=== PATIENT | female | born 1940 | race Caucasian/White ===

== ENCOUNTER 2017-03-20 12:11 | Emergency (ER) | payer OTHER ==
[~2017-03-20] VITALS: Ht 149.9 cm; Wt 66.0 kg
[~2017-03-20 12:11] MED LIST: ATOR20TA15 PO; CLOP75TA PO; IRON18TA2 PO; LATA0.002 EACH EYE; NEXI40CA PO; OMEG100037 PO; PERC5TAB12 PO; PRED1SUS6 EACH EYE; VITA100036 PO
[2017-03-20 12:14] VITALS: BP 181/91; PULSE 85; RESP 16; TEMP 98.1; O2SAT 97
[2017-03-20] MEDS ORDERED: [UNRECOGNIZED DRUG - OTHER] (12:33)
--- NOTE | 2017-03-20 12:59 | PD ---
HPI Chief Complaint: Pain: Acute or Chronic Time Seen by Provider: 12:32 Travel History International Travel<30 days: No Contact w/Intl Traveler<30days: No Traveled to known affect area: No History of Present Illness HPI 76-year-old female presents the emergency Department with complaints of abdominal pain, and left lower back pain with sciatic symptoms gardening 2 days ago. Patient states she has chronic abdominal pain from hernia as well as increased left lower abdominal pain in the last several days. Patient is a very poor historian. He denies weakness in the left lower extremity but has pain in the left hip. She states she's had multiple steroid injections in the neck for previous spinal stenosis and cervical disc problems, but these may her itch. Patient states that aspirin upsets her stomach. It is not a true allergy. Pain is 3 out of 10 in the left hip and left lower abdomen. Patient denies nausea or vomiting. She denies urinary symptoms. PFSH Past Medical History Arthritis: Yes (hands, feetl, legs) Heart Rhythm Problems: No Cardiac Catheterization: No Cardiovascular Problems: No High Cholesterol: Yes Congestive Heart Failure: No Cerebrovascular Accident: Yes (CVA 2014) Coronary Artery Disease: Yes (DENIES ON 07/09/14) Diabetes: No Diminished Hearing: Yes (some [place]) Genitourinary: No Hypertension: Yes Neurologic: Yes (GETS DIZZY AT TIMES) Respiratory: No Immunizations Current: No Thyroid Disease: Yes Triglycerides - High: Yes Menopausal: Yes : 2 Para: 2 Ovarian Cysts: Yes (ovaries removed) Past Surgical History Appendectomy: Yes Cholecystectomy: Yes Coronary Artery Bypass Graft: No Endocrine Surgery: No Genitourinary Surgery: Yes (bladder tuck.) Gynecologic Surgery: Yes (hysterctomy) Hysterectomy: Yes Other Surgery: Yes (BLADDER UPLIFT) Social History Alcohol Use: No Tobacco Use: No Substance Use: No Allergies-Medications (Allergen,Severity, Reaction): Coded Allergies: butorphanol (Unverified Allergy, Severe, RASH, 03/20/17) aspirin (Unverified Allergy, Intermediate, Vertigo, 03/20/17) Uncoded Allergies: STEROIDS (Allergy, Mild, 04/11/16) . Reported Meds & Prescriptions Reported Meds & Active Scripts Active Reported [Aspirine Codeine ] Review of Systems Except as stated in HPI: all other systems reviewed are Neg General / Constitutional: No: Fever Eyes: No: Visual changes HENT: No: Headaches Cardiovascular: No: Chest Pain or Discomfort Respiratory: No: Shortness of Breath Gastrointestinal: Positive: Abdominal Pain, No: Nausea, Vomiting, Diarrhea, Constipation, Loss of Appetite Genitourinary: No: Urgency, Frequency, Dysuria Musculoskeletal: Positive: Arthralgias, Limited ROM, Pain Skin: No Rash Neurologic: No: Weakness Psychiatric: No: Depression Endocrine: No: Polydipsia Hematologic/Lymphatic: No: Easy Bruising Physical Exam Narrative GENERAL: Patient appears in no acute distress. SKIN: Warm and dry. Normal color. Normal turgor. No rash. HEAD: Atraumatic. Normocephalic. EYES: Pupils equal and round. No scleral icterus. No injection or drainage. ENT: No nasal bleeding or discharge. Mucous membranes pink and moist. Pharynx is clear. Airway is patent. NECK: Trachea midline. Supple nontender. CARDIOVASCULAR: Regular rate and rhythm. RESPIRATORY: No accessory muscle use. Clear to auscultation. Breath sounds equal bilaterally. GASTROINTESTINAL: Abdomen soft, mild to moderate left lower quadrant tenderness without rebound, nondistended. Bowel sounds appreciated quadrants. No CVA tenderness. Hepatic and splenic margins not palpable. MUSCULOSKELETAL: Extremities without clubbing, cyanosis, or edema. No obvious deformities. Patient has pain in the left hip extension and internal and external rotation. Negative straight leg raise pain suggestive of sciatica NEUROLOGICAL: Awake and alert. No obvious cranial nerve deficits. Motor grossly within normal limits. Five out of 5 muscle strength in the arms and legs. Normal speech. PSYCHIATRIC: Appropriate mood and affect; insight and judgment normal. Data Data Last Documented VS Vital Signs Date Time Temp Pulse Resp B/P (MAP) Pulse Ox O2 Delivery O2 Flow Rate FiO2 03/20/17 13:22 (121) 03/20/17 12:14 98.1 85 16 97 Orders Orders Complete Blood Count With Diff (03/20/17 12:46) Comprehensive Metabolic Panel (03/20/17 12:46) Lipase (03/20/17 12:46) Lactic Acid (03/20/17 12:46) Prothrombin Time / Inr (Pt) (03/20/17 12:46) Act Partial Throm Time (Ptt) (03/20/17 12:46) Urinalysis - C+S If Indicated (03/20/17 12:46) Ct Abd/Pel W Iv Contrast(Rout) (03/20/17 12:46) Iv Access Insert/Monitor (03/20/17 12:46) Ecg Monitoring (03/20/17 12:46) Oximetry (03/20/17 12:46) Sodium Chloride 0.9% Flush (Ns Flush) (03/20/17 13:00) Methylprednisolone So Succ Inj (Solumedr (03/20/17 13:00) Iohexol 350 Inj (Omnipaque 350 Inj) (03/20/17 15:00) Labs Laboratory Tests Test 03/20/17 13:10 03/20/17 13:30 03/20/17 13:50 White Blood Count 6.9 TH/MM3 Red Blood Count 4.60 MIL/MM3 Hemoglobin 13.4 GM/DL Hematocrit 40.6 % Mean Corpuscular Volume 88.3 FL Mean Corpuscular Hemoglobin 29.1 PG Mean Corpuscular Hemoglobin Concent 32.9 % Red Cell Distribution Width 12.8 % Platelet Count 195 TH/MM3 Mean Platelet Volume 9.6 FL Neutrophils (%) (Auto) 62.7 % Lymphocytes (%) (Auto) 28.0 % Monocytes (%) (Auto) 5.7 % Eosinophils (%) (Auto) 3.1 % Basophils (%) (Auto) 0.5 % Neutrophils # (Auto) 4.3 TH/MM3 Lymphocytes # (Auto) 1.9 TH/MM3 Monocytes # (Auto) 0.4 TH/MM3 Eosinophils # (Auto) 0.2 TH/MM3 Basophils # (Auto) 0.0 TH/MM3 CBC Comment DIFF FINAL Differential Comment Prothrombin Time 10.5 SEC Prothromb Time International Ratio 1.0 RATIO Activated Partial Thromboplast Time 25.5 SEC Blood Urea Nitrogen 15 MG/DL Creatinine 0.82 MG/DL Random Glucose 129 MG/DL Total Protein 7.3 GM/DL Albumin 3.5 GM/DL Calcium Level 9.5 MG/DL Alkaline Phosphatase 80 U/L Aspartate Amino Transf (AST/SGOT) 30 U/L Alanine Aminotransferase (ALT/SGPT) 40 U/L Total Bilirubin 0.3 MG/DL Sodium Level 140 MEQ/L Potassium Level 3.7 MEQ/L Chloride Level 108 MEQ/L Carbon Dioxide Level 26.3 MEQ/L Anion Gap 6 MEQ/L Estimat Glomerular Filtration Rate 68 ML/MIN Lipase 280 U/L Urine Color LIGHT-YELLOW Urine Turbidity CLEAR Urine pH 6.0 Urine Specific [place] 1.005 Urine Protein NEG mg/dL Urine Glucose (UA) NEG mg/dL Urine Ketones NEG mg/dL Urine Occult Blood NEG Urine Nitrite NEG Urine Bilirubin NEG Urine Urobilinogen LESS THAN 2.0 MG/DL Urine Leukocyte Esterase NEG Urine RBC LESS THAN 1 /hpf Urine WBC LESS THAN 1 /hpf Urine Squamous Epithelial Cells 2 /hpf Urine Transitional Epithelial Cells <1 /hpf Urine Bacteria RARE /hpf Microscopic Urinalysis Comment CULT NOT INDICATED Lactic Acid Level 1.0 mmol/L [facility] Medical Decision Making Medical Screen Exam Complete: Yes Emergency Medical Condition: Yes Medical Record Reviewed: Yes Differential Diagnosis Left hip arthritis. Sciatica. Left lower abdominal pain. Narrative Course Patient is medically stable at time of exam. Labs ordered including CBC, CMP, PT PTT and INR, Lactic acid, lipase, urinalysis. CT of the abdomen/pelvis with IV contrast is ordered. IV access is obtained patient is given 125 mg Solu-Medrol IV. CBC is unremarkable. Chemistries are unremarkable except for chloride of 108, GFR 68, random glucose 129. Lactic acid is 1.0. Coagulation studies are normal. Urinalysis is unremarkable. CT of the abdomen shows no acute process. Patient is felt stable for discharge. Patient will be continued on prednisone by mouth 20 mg daily for the next 5 days. Patient take extra strength Tylenol 500 mg tabs, 2 tabs every 6 hours when necessary pain #60. Patient should follow with her primary care physician for further evaluation and treatment as needed. Diagnosis Primary Impression: Arthritis of left hip Additional Impression: Abdominal pain Qualified Codes: R10.32 - Left lower quadrant pain Referrals: Primary Care Physician Patient Instructions: Acetaminophen (By mouth), General Instructions, Osteoarthritis (ED), Prednisone (By mouth) Additional Instructions: CBC is unremarkable. Chemistries are unremarkable except for chloride of 108, GFR 68, random glucose 129. Lactic acid is 1.0. Coagulation studies are normal. Urinalysis is unremarkable. CT of the abdomen shows no acute process. Patient is felt stable for discharge. Patient will be continued on prednisone by mouth 20 mg daily for the next 5 days. Patient take extra strength Tylenol 500 mg tabs, 2 tabs every 6 hours when necessary pain #60. Patient should follow with her primary care physician for further evaluation and treatment as needed. Disposition: DISCHARGE HOME Condition: Stable Wale Vyas Mar 20, 2017 12:59
[2017-03-20] MEDS ORDERED: SODIUM CHLORIDE 0.9% FLUSH 10 ML FLUSH IV FLUSH PRN (13:00)
[2017-03-20] MEDS ORDERED: methylPREDNISolone SOD SUCC 125 MG/2 ML VIAL IV PUSH ONE (13:00)
[2017-03-20 13:33] LABS: AUTOMATED NEUTROPHIL # 4.3 TH/MM3 (1.8-7.7); BASOPHIL % 0.5 % (0.0-2.0); EOSINOPHIL # 0.2 TH/MM3 (0-0.4); EOSINOPHIL % 3.1 % (0.0-4.0); HEMATOCRIT 40.6 % (35.0-46.0); HEMOGLOBIN 13.4 GM/DL (11.6-15.3); LYMPHOCYTE # 1.9 TH/MM3 (1.0-4.8); MEAN CELL VOLUME 88.3 FL (80.0-100.0); MEAN CORPUSCULAR HEMOGLOBIN 29.1 PG (27.0-34.0); MEAN CORPUSCULAR HGB CONC 32.9 % (32.0-36.0); MEAN PLATELET VOLUME 9.6 FL (7.0-11.0); MONO % 5.7 % (0.0-8.0); MONOCYTE # 0.4 TH/MM3 (0-0.9); NEUT % 62.7 % (16.0-70.0); PLATELET COUNT 195 TH/MM3 (150-450); RED CELL DISTRIBUTION WIDTH 12.8 % (11.6-17.2); WHITE BLOOD COUNT 6.9 TH/MM3 (4.0-11.0)
[2017-03-20 13:42] LABS: PROTHROMBIN TIME - PATIENT 10.5 SEC (9.8-11.6)
--- NOTE | 2017-03-20 13:50 | PD ---
Physical Exam Date Seen by Provider: Mar 20, 2017 Narrative Patient presents with a multitude of complaints including abdominal pain, back pain, left leg pain Data Data Last Documented VS Vital Signs Date Time Temp Pulse Resp B/P (MAP) Pulse Ox O2 Delivery O2 Flow Rate FiO2 03/20/17 13:22 (121) 03/20/17 12:14 98.1 85 16 97 Orders Orders Complete Blood Count With Diff (03/20/17 12:46) Comprehensive Metabolic Panel (03/20/17 12:46) Lipase (03/20/17 12:46) Lactic Acid (03/20/17 12:46) Prothrombin Time / Inr (Pt) (03/20/17 12:46) Act Partial Throm Time (Ptt) (03/20/17 12:46) Urinalysis - C+S If Indicated (03/20/17 12:46) Ct Abd/Pel W Iv Contrast(Rout) (03/20/17 12:46) Iv Access Insert/Monitor (03/20/17 12:46) Ecg Monitoring (03/20/17 12:46) Oximetry (03/20/17 12:46) Sodium Chloride 0.9% Flush (Ns Flush) (03/20/17 13:00) Methylprednisolone So Succ Inj (Solumedr (03/20/17 13:00) Labs Laboratory Tests Test 03/20/17 13:10 White Blood Count 6.9 TH/MM3 Red Blood Count 4.60 MIL/MM3 Hemoglobin 13.4 GM/DL Hematocrit 40.6 % Mean Corpuscular Volume 88.3 FL Mean Corpuscular Hemoglobin 29.1 PG Mean Corpuscular Hemoglobin Concent 32.9 % Red Cell Distribution Width 12.8 % Platelet Count 195 TH/MM3 Mean Platelet Volume 9.6 FL Neutrophils (%) (Auto) 62.7 % Lymphocytes (%) (Auto) 28.0 % Monocytes (%) (Auto) 5.7 % Eosinophils (%) (Auto) 3.1 % Basophils (%) (Auto) 0.5 % Neutrophils # (Auto) 4.3 TH/MM3 Lymphocytes # (Auto) 1.9 TH/MM3 Monocytes # (Auto) 0.4 TH/MM3 Eosinophils # (Auto) 0.2 TH/MM3 Basophils # (Auto) 0.0 TH/MM3 CBC Comment DIFF FINAL Differential Comment Prothrombin Time 10.5 SEC Prothromb Time International Ratio 1.0 RATIO Activated Partial Thromboplast Time 25.5 SEC MDM Supervised Visit with KELLI: Yes Narrative Course I, Dr. Pinzon, have reviewed the advance practice practitioner's documentation and am in agreement, met with the patient face to face, made the diagnosis, and the medical decision making was done by me. *My assessment and Findings: Her abdomen is soft. I assisted her to the bathroom and she walks with a limp favoring her left leg. Please see Dre Vyas PA-C's note for results of laboratory and radiographic evaluation, ED course, final diagnosis and disposition Condition: Stable Inge Pinzon MD Mar 20, 2017 13:50
[2017-03-20 13:52] LABS: ALBUMIN 3.5 GM/DL (3.4-5.0); AST (GOT) 30 U/L (15-37); BICARBONATE 26.3 MEQ/L (21.0-32.0); BLOOD UREA NITROGEN 15 MG/DL (7-18); CALCIUM 9.5 MG/DL (8.5-10.1); CHLORIDE 108 MEQ/L (98-107); CREATININE 0.82 MG/DL (0.50-1.00); GLOMERULAR FILTRATION RATE 68 ML/MIN (>89); GLUCOSE,RANDOM 129 MG/DL (74-106); LIPASE 280 U/L (73-393); SODIUM (NA) 140 MEQ/L (136-145)
[2017-03-20 13:53] LABS: ALT (GPT) 40 U/L (10-53)
[2017-03-20 13:55] LABS: ALKALINE PHOSPHATASE 80 U/L (45-117); TOTAL BILIRUBIN ADULT 0.3 MG/DL (0.2-1.0); TOTAL PROTEIN 7.3 GM/DL (6.4-8.2)
[2017-03-20 14:16] LABS: BACTERIA, URINE RARE /hpf; BILIRUBIN, URINE NEG (NEG); BLOOD, URINE NEG (NEG); GLUCOSE,URINE NEG (NEG); KETONE, URINE NEG (NEG); NITRITE,URINE NEG (NEG); SQUAMOUS EPITHELIAL CELL URINE 2 /hpf (0-5); TRANSITIONAL EPI CELLS, URINE <1 /hpf; URINE COLOR LIGHT-YELLOW (YELLW/STRAW); URINE LEUKOCYTE ESTERASE NEG (NEG)
[2017-03-20] MEDS ORDERED: IOHEXOL 350 MG/ML 10 ML VIAL (for RAD DIAG) IVCONTRAST ONE (15:00)
--- NOTE | 2017-03-20 15:26 | RADRPT ---
EXAM DATE/TIME: 03/20/2017 14:49 [facility] COMPARISON: CT PULMONARY ANGIOGRAM, March 30, 2014, 8:45. INDICATIONS : Left lower abdomen pain for one week. IV CONTRAST: 76 cc Omnipaque 350 (iohexol) IV ORAL CONTRAST: No oral contrast ingested. RADIATION DOSE: 6.91 CTDIvol (mGy) MEDICAL HISTORY : Stroke. Hypertension. SURGICAL HISTORY : Hysterectomy. Appendectomy.Cholecystectomy. ENCOUNTER: Initial ACUITY: 1 week PAIN SCALE: 7/10 LOCATION: Left lower quadrant TECHNIQUE: Volumetric scanning of the abdomen and pelvis was performed. Using automated exposure control and ad justment of the mA and/or kV according to patient size, radiation dose was kept as low as reasonably achievable to obtain optimal diagnostic quality images. DICOM format image data is available electro nically for review and comparison. FINDINGS: LOWER LUNGS: A long-standing 5 mm benign granuloma is seen involving the right lung base and left lung base. LIVER: Homogeneous density without lesion. There is no dilation of the biliary tree. No calcified gallston es. SPLEEN: Normal size without lesion. PANCREAS: Within normal limits. KIDNEYS: Normal in size and shape. There is no mass, stone or hydronephrosis. ADRENAL GLANDS: Within normal limits. VASCULAR: There is no aortic aneurysm. BOWEL/MESENTERY: The stomach, small bowel, and colon demonstrate no acute abnormality. There is no free intraperitone al air or fluid. Scattered colonic diverticuli. ABDOMINAL WALL: Within normal limits. RETROPERITONEUM: There is no lymphadenopathy. BLADDER: No wall thickening or mass. REPRODUCTIVE: Within normal limits. Prior hysterectomy. INGUINAL: There is no lymphadenopathy or hernia. MUSCULOSKELETAL: Within normal limits for patient age. CONCLUSION: 1. No acute abnormality. 2. Long-term stable benign granulomas involving the lower lobes. 3. Colonic diverticulosis without acute inflammation. Glen Bennett Jr., MD on March 20, 2017 at 15:21 Board Certified Radiologist. This report was verified electronically.
[2017-03-20] MEDS ORDERED: MAPA500T13 PO (15:33)
[2017-03-20] MEDS ORDERED: PRED20 PO (15:33)
== END 2017-03-20 16:05 | disposition home or self-care (01) ==
LOC: NEPE 12:11
DX: M16.12 Unilateral primary osteoarthritis, left hip (principal); R10.32 Left lower quadrant pain
CPT/HCPCS: 74177; 80053; 81001; 83605; 83690; 85025; 85610; 85730; 96374; 99285; J2930; Q9967

== ENCOUNTER 2017-04-06 11:34 | Inpatient (IN) | payer OTHER, MEDICARE ==
[~2017-04-06] VITALS: Ht 149.9 cm; Wt 70.0 kg
[~2017-04-06 11:34] MED LIST changes: -ATOR20TA15 PO; -CLOP75TA PO; -IRON18TA2 PO; -LATA0.002 EACH EYE; +MAPA500T13 PO; -NEXI40CA PO; -OMEG100037 PO; -PERC5TAB12 PO; -PRED1SUS6 EACH EYE; +PRED20 PO; -VITA100036 PO; +[UNRECOGNIZED DRUG - OTHER]
[2017-04-06 11:41] VITALS: BP 209/111; PULSE 87; RESP 22; TEMP 97.7; O2SAT 95
[2017-04-06] MEDS ORDERED: ASPI81TA23 PO (11:55)
[2017-04-06 12:00] VITALS: BP 156/82; PULSE 82; RESP 21; O2SAT 93
[2017-04-06 12:33] LABS: BASOPHIL % 0.6 % (0.0-2.0); EOSINOPHIL # 0.3 TH/MM3 (0-0.4); EOSINOPHIL % 3.5 % (0.0-4.0); HEMATOCRIT 39.7 % (35.0-46.0); LYMPH % 20.4 % (9.0-44.0); LYMPHOCYTE # 1.5 TH/MM3 (1.0-4.8); MEAN CELL VOLUME 88.1 FL (80.0-100.0); MEAN CORPUSCULAR HEMOGLOBIN 29.1 PG (27.0-34.0); NEUT % 69.5 % (16.0-70.0); PLATELET COUNT 182 TH/MM3 (150-450); RED BLOOD COUNT 4.51 MIL/MM3 (4.00-5.30); WHITE BLOOD COUNT 7.2 TH/MM3 (4.0-11.0)
[2017-04-06 12:35] LABS: HEMO FLAGS DIFF FINAL
--- NOTE | 2017-04-06 12:37 | RADRPT ---
EXAM DATE/TIME: 04/06/2017 12:15 [facility] COMPARISON: CT BRAIN W/O CONTRAST, July 09, 2014, 20:05. INDICATIONS : Left sided weakness since 2am. History of stroke. RADIATION DOSE: 56.77 CTDIvol (mGy) MEDICAL HISTORY : Cerebrovascular disease. Cardiovascular disease Hypertension. SURGICAL HISTORY : Appendectomy. Cholecystectomy.Hysterectomy. ENCOUNTER: Initial ACUITY: 1 day PAIN SCALE: 0/10 LOCATION: cranial TECHNIQUE: Multiple contiguous axial images were obtained of the head. Using automated exposure control and adj ustment of the mA and/or kV according to patient size, radiation dose was kept as low as reasonably a chievable to obtain optimal diagnostic quality images. DICOM format image data is available electro nically for review and comparison. FINDINGS: CEREBRUM: The ventricles are normal for age. There is moderate bilateral chronic white matter changes. Stable o ld infarct in the left basal ganglia. No evidence of midline shift, mass lesion, hemorrhage or acute infarction. No extra-axial fluid collections are seen. POSTERIOR FOSSA: The cerebellum and brainstem are intact. The 4th ventricle is midline. The cerebellopontine angle i s unremarkable. EXTRACRANIAL: The visualized portion of the orbits is intact. SKULL: The calvaria is intact. No evidence of skull fracture. CONCLUSION: 1. No focal or acute intracranial hemorrhage. 2. Stable old infarct in the left basal ganglia. 3. Moderate bilateral chronic white matter changes characteristic of patients age. Mike Camara MD on April 06, 2017 at 12:34 Board Certified Radiologist. This report was verified electronically.
[2017-04-06 12:40] LABS: APTT (PATIENT) 25.4 SEC (24.3-30.1); INTERNATIONAL NORMALIZED RATIO 0.9 RATIO; PROTHROMBIN TIME - PATIENT 10.4 SEC (9.8-11.6)
--- NOTE | 2017-04-06 12:54 | RADRPT ---
EXAM DATE/TIME: 04/06/2017 12:36 [facility] COMPARISON: CHEST SINGLE AP, March 29, 2014, 12:43. INDICATIONS : Chest pain, left sided weakness since 2am today MEDICAL HISTORY : Stroke. Cardiovascular disease. Hypertension. SURGICAL HISTORY : Appendectomy. Cholecystectomy. Hysterectomy. ENCOUNTER: Initial ACUITY: 1 day PAIN SCORE: Non-responsive. LOCATION: Bilateral chest FINDINGS: A single view of the chest demonstrates the lungs to be symmetrically aerated without evidence of mas s, infiltrate or effusion. The cardiomediastinal contours are unremarkable. Osseous structures are intact. CONCLUSION: No acute disease. No significant change has occurred. Mike Camara MD on April 06, 2017 at 12:53 Board Certified Radiologist. This report was verified electronically.
[2017-04-06 13:01] LABS: ANION GAP 7 MEQ/L (5-15); AST (GOT) 36 U/L (15-37); BICARBONATE 28.3 MEQ/L (21.0-32.0); BLOOD UREA NITROGEN 14 MG/DL (7-18); CHLORIDE 106 MEQ/L (98-107); GLOMERULAR FILTRATION RATE 71 ML/MIN (>89); POTASSIUM 3.5 MEQ/L (3.5-5.1); SODIUM (NA) 141 MEQ/L (136-145)
[2017-04-06 13:12] LABS: ALKALINE PHOSPHATASE 83 U/L (45-117); ALT (GPT) 44 U/L (10-53); CREATINE KINASE 59 U/L (26-192); TOTAL BILIRUBIN ADULT 0.3 MG/DL (0.2-1.0)
[2017-04-06 13:15] LABS: BLOOD, URINE NEG (NEG); COMMENT (UR) CULT NOT INDICATED; CULTURE IF INDICATED CULT NOT INDICATED; GLUCOSE,URINE NEG (NEG); KETONE, URINE NEG (NEG); NITRITE,URINE NEG (NEG); TRANSITIONAL EPI CELLS, URINE <1 /hpf; URINE COLOR LIGHT-YELLOW (YELLW/STRAW)
--- NOTE | 2017-04-06 13:26 | PD ---
HPI Chief Complaint: Neuro Symptoms/ Deficits Time Seen by Provider: 12:00 Travel History International Travel<30 days: No Contact w/Intl Traveler<30days: No Traveled to known affect area: No History of Present Illness HPI 76-year-old female that presents to the ED for evaluation of weakness and numbness to the left side of the body. Per patient she went to bed last night feeling okay but she woke up around 2 or 3 AM in the morning feeling that she couldn't move her left side of her body. She does have a history of CVA. She states that she woke up later and she continued to have the symptoms very was more like a numbness. She is able to move the arms and legs but with some weakness. She denies any blurry vision or double vision. She denies any abdominal pain but does state having some left-sided chest discomfort that is coming on and off. Symptoms feel like they are more severe today. She states that her discomfort is 4 out of 10 and pressure-like on the left chest. She denies any urinary or bowel movement issues. She denies any tingling sensation. No head injury or loss of consciousness. Per patient she is to be on blood thinners but it was discontinued because it made her feel weird. Per patient now she only takes aspirin. She does have history diabetes and high blood pressure. Patient has allergies to aspirin and steroids as well as propanol. She has not seen anybody for this today. denies any slurred speech or altered mentation. PFSH Past Medical History Hx Anticoagulant Therapy: Yes (ASA) Arthritis: Yes (hands, feetl, legs) Heart Rhythm Problems: No Cardiac Catheterization: No Cardiovascular Problems: Yes High Cholesterol: Yes Congestive Heart Failure: No Cerebrovascular Accident: Yes Coronary Artery Disease: Yes (DENIES ON 07/09/14) Diabetes: No Diminished Hearing: Yes (some red devil) Genitourinary: No Hypertension: Yes Neurologic: Yes (GETS DIZZY AT TIMES) Respiratory: No Immunizations Current: No Thyroid Disease: Yes Triglycerides - High: Yes Menopausal: Yes : 2 Para: 2 Ovarian Cysts: Yes (ovaries removed) Past Surgical History Appendectomy: Yes Cholecystectomy: Yes Coronary Artery Bypass Graft: No Endocrine Surgery: No Genitourinary Surgery: Yes (bladder tuck.) Gynecologic Surgery: Yes (hysterctomy) Hysterectomy: Yes Other Surgery: Yes (BLADDER UPLIFT) Social History Alcohol Use: No Tobacco Use: No Substance Use: No Allergies-Medications (Allergen,Severity, Reaction): Coded Allergies: butorphanol (Verified Allergy, Severe, RASH, 04/06/17) aspirin (Verified Allergy, Intermediate, Vertigo, 04/06/17) Uncoded Allergies: STEROIDS (Allergy, Mild, 04/11/16) . Reported Meds & Prescriptions Reported Meds & Active Scripts Active Mapap Extra Strength (Acetaminophen) 500 Mg Tab 1,000 Mg PO Q6HR PRN Reported Aspirin EC (Aspirin) 81 Mg Tabdr 81 Mg PO DAILY Review of Systems Except as stated in HPI: all other systems reviewed are Neg Physical Exam Narrative GENERAL: SKIN: Warm and dry. HEAD: Atraumatic. Normocephalic. EYES: Pupils equal and round 4 mm reactive to light and accommodation. No scleral icterus. No injection or drainage. EOM intact bilaterally ENT: No nasal bleeding or discharge. Mucous membranes pink and moist. Tongue is midline. No uvula deviation. NECK: Trachea midline. No JVD. CARDIOVASCULAR: Regular rate and rhythm. No murmurs, S3, S4. RESPIRATORY: No accessory muscle use. Clear to auscultation. Breath sounds equal bilaterally. GASTROINTESTINAL: Abdomen soft, non-tender, nondistended. Hepatic and splenic margins not palpable. MUSCULOSKELETAL: Extremities without clubbing, cyanosis, or edema. No obvious deformities. Full range of motion of the upper and lower extremities bilaterally. Patient does have some weakness on the left side compared to the right. Minimal. 4 out of 5. No lumbar, thoracic, cervical spine tenderness to palpation. Patient does have subjective numbness but is able to feel pinpricks. NEUROLOGICAL: Awake and alert and oriented 4. No obvious cranial nerve deficits. Motor grossly within normal limits. Five out of 5 muscle strength in the arms and legs. Normal speech. Pronator test negative. PSYCHIATRIC: Appropriate mood and affect; insight and judgment normal. Data Data Last Documented VS Vital Signs Date Time Temp Pulse Resp B/P (MAP) Pulse Ox O2 Delivery O2 Flow Rate FiO2 04/06/17 11:41 97.7 87 22 209/111 (143) 95 Room Air Orders Orders Electrocardiogram (04/06/17 12:05) Complete Blood Count With Diff (04/06/17 12:05) Comprehensive Metabolic Panel (04/06/17 12:05) Ckmb (Isoenzyme) Profile (04/06/17 12:05) Troponin I (04/06/17 12:05) Prothrombin Time / Inr (Pt) (04/06/17 12:05) Act Partial Throm Time (Ptt) (04/06/17 12:05) Urinalysis - C+S If Indicated (04/06/17 12:05) Magnesium (Mg) (04/06/17 12:05) Thyroid Stimulating Hormone (04/06/17 12:05) Chest, Single Ap (04/06/17 12:05) Ct Brain W/O Iv Contrast(Rout) (04/06/17 12:05) Iv Access Insert/Monitor (04/06/17 12:05) Ecg Monitoring (04/06/17 12:05) Oximetry (04/06/17 12:05) Admit Order (Ed Use Only) (04/06/17 13:39) Labs Laboratory Tests Test 04/06/17 12:05 04/06/17 12:50 White Blood Count 7.2 TH/MM3 Red Blood Count 4.51 MIL/MM3 Hemoglobin 13.1 GM/DL Hematocrit 39.7 % Mean Corpuscular Volume 88.1 FL Mean Corpuscular Hemoglobin 29.1 PG Mean Corpuscular Hemoglobin Concent 33.0 % Red Cell Distribution Width 13.0 % Platelet Count 182 TH/MM3 Mean Platelet Volume 9.5 FL Neutrophils (%) (Auto) 69.5 % Lymphocytes (%) (Auto) 20.4 % Monocytes (%) (Auto) 6.0 % Eosinophils (%) (Auto) 3.5 % Basophils (%) (Auto) 0.6 % Neutrophils # (Auto) 5.0 TH/MM3 Lymphocytes # (Auto) 1.5 TH/MM3 Monocytes # (Auto) 0.4 TH/MM3 Eosinophils # (Auto) 0.3 TH/MM3 Basophils # (Auto) 0.0 TH/MM3 CBC Comment DIFF FINAL Differential Comment Prothrombin Time 10.4 SEC Prothromb Time International Ratio 0.9 RATIO Activated Partial Thromboplast Time 25.4 SEC Blood Urea Nitrogen 14 MG/DL Creatinine 0.79 MG/DL Random Glucose 143 MG/DL Total Protein 7.2 GM/DL Albumin 3.2 GM/DL Calcium Level 9.3 MG/DL Magnesium Level 2.0 MG/DL Alkaline Phosphatase 83 U/L Aspartate Amino Transf (AST/SGOT) 36 U/L Alanine Aminotransferase (ALT/SGPT) 44 U/L Total Bilirubin 0.3 MG/DL Sodium Level 141 MEQ/L Potassium Level 3.5 MEQ/L Chloride Level 106 MEQ/L Carbon Dioxide Level 28.3 MEQ/L Anion Gap 7 MEQ/L Estimat Glomerular Filtration Rate 71 ML/MIN Total Creatine Kinase 59 U/L Troponin I 0.02 NG/ML Thyroid Stimulating Hormone 3rd Gen 2.080 uIU/ML Urine Color LIGHT-YELLOW Urine Turbidity CLEAR Urine pH 6.0 Urine Specific [place] 1.004 Urine Protein NEG mg/dL Urine Glucose (UA) NEG mg/dL Urine Ketones NEG mg/dL Urine Occult Blood NEG Urine Nitrite NEG Urine Bilirubin NEG Urine Urobilinogen LESS THAN 2.0 MG/DL Urine Leukocyte Esterase NEG Urine RBC LESS THAN 1 /hpf Urine WBC LESS THAN 1 /hpf Urine Transitional Epithelial Cells <1 /hpf Microscopic Urinalysis Comment CULT NOT INDICATED MDM Medical Decision Making Medical Screen Exam Complete: Yes Emergency Medical Condition: Yes Medical Record Reviewed: Yes Interpretation(s) Last Impressions Head CT 04/06/17 1205 Signed Impressions: Service Date/Time: Thursday, April 06, 2017 12:15 - CONCLUSION: 1. No focal or acute intracranial hemorrhage. 2. Stable old infarct in the left basal ganglia. 3. Moderate bilateral chronic white matter changes characteristic of patients age. Mike Camara MD Chest X-Ray 04/06/17 1205 Signed Impressions: Service Date/Time: Thursday, April 06, 2017 12:36 - CONCLUSION: No acute disease. No significant change has occurred. Mike Camara MD CBC & BMP Diagram 04/06/17 12:05 Total Protein 7.2, Albumin 3.2 L, Calcium Level 9.3, Magnesium Level 2.0, Alkaline Phosphatase 83, Aspartate Amino Transf (AST/SGOT) 36, Alanine Aminotransferase (ALT/SGPT) 44, Total Bilirubin 0.3 Troponin and CK-MB negative. Coags within normal limits. EKG shows sinus rhythm with no sign of acute ischemia or arrhythmia read by me and attending. Differential Diagnosis CVA versus TIA versus left-sided weakness versus UTI versus chest pain versus ACS versus neuropathy Narrative Course 76-year-old female that presents to the ED for evaluation of left-sided numbness. Patient was properly examined and was found to have signs and symptoms concerning for possible CVA. Patient does have a history of CVA in the past that affect the left side but she states that the symptoms appear to be new since this morning. She states that she woke up around 2 AM with the symptoms and have continued since. She is outside of the window for TPA. Case was discussed immediately with my attending Dr. aYng who evaluated the patient with me and agrees with plan. CT was ordered. Labs were ordered. Labs and CT were negative for acute disease. Because of patient's new onset of symptoms recommendations for further evaluation for CVA workup. Patient and family agree with this. My attending Dr. Yang recommended this. HEPAS was paged. Dr. Alejandro agrees to obs Admission. Diagnosis Primary Impression: Left-sided weakness Additional Impressions: Cerebrovascular accident (stroke) Qualified Codes: I63.9 - Cerebral infarction, unspecified Hypertension Qualified Codes: I10 - Essential (primary) hypertension Admitting Information Admitting Physician Requests: Marvin Menchaca Apr 06, 2017 13:26
--- NOTE | 2017-04-06 13:53 | PD ---
Data Data Last Documented VS Vital Signs Date Time Temp Pulse Resp B/P (MAP) Pulse Ox O2 Delivery O2 Flow Rate FiO2 04/06/17 11:41 97.7 87 22 209/111 (143) 95 Room Air Orders Orders Electrocardiogram (04/06/17 12:05) Complete Blood Count With Diff (04/06/17 12:05) Comprehensive Metabolic Panel (04/06/17 12:05) Ckmb (Isoenzyme) Profile (04/06/17 12:05) Troponin I (04/06/17 12:05) Prothrombin Time / Inr (Pt) (04/06/17 12:05) Act Partial Throm Time (Ptt) (04/06/17 12:05) Urinalysis - C+S If Indicated (04/06/17 12:05) Magnesium (Mg) (04/06/17 12:05) Thyroid Stimulating Hormone (04/06/17 12:05) Chest, Single Ap (04/06/17 12:05) Ct Brain W/O Iv Contrast(Rout) (04/06/17 12:05) Iv Access Insert/Monitor (04/06/17 12:05) Ecg Monitoring (04/06/17 12:05) Oximetry (04/06/17 12:05) Admit Order (Ed Use Only) (04/06/17 13:39) Labs Laboratory Tests Test 04/06/17 12:05 04/06/17 12:50 White Blood Count 7.2 TH/MM3 Red Blood Count 4.51 MIL/MM3 Hemoglobin 13.1 GM/DL Hematocrit 39.7 % Mean Corpuscular Volume 88.1 FL Mean Corpuscular Hemoglobin 29.1 PG Mean Corpuscular Hemoglobin Concent 33.0 % Red Cell Distribution Width 13.0 % Platelet Count 182 TH/MM3 Mean Platelet Volume 9.5 FL Neutrophils (%) (Auto) 69.5 % Lymphocytes (%) (Auto) 20.4 % Monocytes (%) (Auto) 6.0 % Eosinophils (%) (Auto) 3.5 % Basophils (%) (Auto) 0.6 % Neutrophils # (Auto) 5.0 TH/MM3 Lymphocytes # (Auto) 1.5 TH/MM3 Monocytes # (Auto) 0.4 TH/MM3 Eosinophils # (Auto) 0.3 TH/MM3 Basophils # (Auto) 0.0 TH/MM3 CBC Comment DIFF FINAL Differential Comment Prothrombin Time 10.4 SEC Prothromb Time International Ratio 0.9 RATIO Activated Partial Thromboplast Time 25.4 SEC Blood Urea Nitrogen 14 MG/DL Creatinine 0.79 MG/DL Random Glucose 143 MG/DL Total Protein 7.2 GM/DL Albumin 3.2 GM/DL Calcium Level 9.3 MG/DL Magnesium Level 2.0 MG/DL Alkaline Phosphatase 83 U/L Aspartate Amino Transf (AST/SGOT) 36 U/L Alanine Aminotransferase (ALT/SGPT) 44 U/L Total Bilirubin 0.3 MG/DL Sodium Level 141 MEQ/L Potassium Level 3.5 MEQ/L Chloride Level 106 MEQ/L Carbon Dioxide Level 28.3 MEQ/L Anion Gap 7 MEQ/L Estimat Glomerular Filtration Rate 71 ML/MIN Total Creatine Kinase 59 U/L Troponin I 0.02 NG/ML Thyroid Stimulating Hormone 3rd Gen 2.080 uIU/ML Urine Color LIGHT-YELLOW Urine Turbidity CLEAR Urine pH 6.0 Urine Specific [place] 1.004 Urine Protein NEG mg/dL Urine Glucose (UA) NEG mg/dL Urine Ketones NEG mg/dL Urine Occult Blood NEG Urine Nitrite NEG Urine Bilirubin NEG Urine Urobilinogen LESS THAN 2.0 MG/DL Urine Leukocyte Esterase NEG Urine RBC LESS THAN 1 /hpf Urine WBC LESS THAN 1 /hpf Urine Transitional Epithelial Cells <1 /hpf Microscopic Urinalysis Comment CULT NOT INDICATED MDM Supervised Visit with KELLI: Yes Narrative Course The history, exam, and medical decision-making in the associated mid-level provider note were completed with my assistance. I reviewed and agree with the findings presented. I attest that I had a [id number] encounter with the patient on the same day, and personally performed and documented my assessment and findings in the medical record. *My assessment and Findings: 76-year-old presents to the emergency department with left-sided weakness that started when she woke up this morning suggestive of CVA. She has left-sided facial droop cold that speech change, and left-sided weakness. Initial workups unremarkable. She'll be admitted for further evaluation for CVA. Diagnosis Primary Impression: Left-sided weakness Additional Impressions: Cerebrovascular accident (stroke) Qualified Codes: I63.9 - Cerebral infarction, unspecified Hypertension Qualified Codes: I10 - Essential (primary) hypertension Brandon Yang MD Apr 06, 2017 13:53
[2017-04-06] MEDS ORDERED: SODIUM CHLORIDE 0.9% FLUSH 5 ML FLUSH IV FLUSH PRN (14:00)
[2017-04-06] MEDS ORDERED: DEXTROSE 50% IN WATER 50 ML VIAL(D50) IV PUSH PRN (14:00)
[2017-04-06] MEDS ORDERED: ENALAPRILAT 1.25 MG/ML VIAL IV PUSH PRN (14:00)
[2017-04-06] MEDS ORDERED: GLUCAGON 1 MG/ML VIAL OTHER PRN (14:00)
[2017-04-06 14:08] VITALS: BP 155/82; PULSE 66; RESP 17; O2SAT 97
[2017-04-06 15:13] VITALS: BP 159/82; PULSE 84; RESP 18; TEMP 97.5; O2SAT 95
--- NOTE | 2017-04-06 16:09 | PD.CONS ---
History of Present Illness Service Neurology Consult Requested By medical Reason for Consult stroke Primary Care Physician Unknown History of Present Illness 76-year-old f admitted for left sided numbness x 1 day. no hx of afib. glucose 143. ct brain nacip. no ich. mri brain + rt high cortical linear infarct. pt allergic to aspirin. Review of Systems as above and admit hp Past Family Social History Past Medical History Hypertension Hyperlipidemia Hypothyroidism Past Surgical History Cataract surgery Left shoulder surgery Hysterectomy Appendectomy Left foot surgery Bladder lift Allergies: Coded Allergies: Aspirin (Verified Allergy, Intermediate, Vertigo, 03/29/14) Uncoded Allergies: STEROIDS (Allergy, Mild, 09/25/08) Family History Reviewed and significant for diabetes, father from cancer Social History Patient denies any tobacco, alcohol or illicit drugs Review of Systems All other ROS: ROS reviewed as documented in chart Past Family Social History Allergies: Coded Allergies: butorphanol (Verified Allergy, Severe, RASH, 04/06/17) aspirin (Verified Allergy, Intermediate, Vertigo, 04/06/17) Uncoded Allergies: STEROIDS (Allergy, Mild, 04/11/16) . Active Ordered Medications Current Medications Medications (Trade) Dose Ordered Sig/[place] Route Start Time Stop Time Status Last Admin (NS Flush) 2 ml BID IV FLUSH 04/06/17 21:00 (NS Flush) 2 ml UNSCH PRN IV FLUSH 04/06/17 14:00 (Vasotec Inj) 1.25 mg Q4H PRN IV PUSH 04/06/17 14:00 (Lipitor) 10 mg HS PO 04/06/17 21:00 (NovoLOG SUPPLEMENTAL SCALE) 1 ACHS SQ 04/06/17 17:00 (D50w (Vial) Inj) 50 ml UNSCH PRN IV PUSH 04/06/17 14:00 (Glucagon Inj) 1 mg UNSCH PRN OTHER 04/06/17 14:00 (Heparin Inj) 5,000 units Q8H SQ 04/06/17 14:00 Exam I&O / VS Vital Signs Date Time Temp Pulse Resp B/P (MAP) Pulse Ox O2 Delivery O2 Flow Rate FiO2 04/06/17 14:08 66 17 155/82 (106) 97 2.00 04/06/17 12:00 82 21 156/82 (106) 93 Nasal Cannula 2.00 04/06/17 11:41 97.7 87 22 209/111 (143) 95 Room Air General: Alert and Oriented, No acute distress Eye: PERRL Cardiology: Normal rate Musculoskeletal: ROM Neurologic: Alert, Oriented, Gag reflex normal, Normal DTR's Psychiatric: Cooperative, Appropriate mood & affect, Normal judgement Exam Comments left hemisensory Review/Management Diagnosis/Plan: (1) Acute ischemic right MCA stroke ICD Codes: I63.511 - Cerebral infarction due to unspecified occlusion or stenosis of right middle cerebral artery Status: Acute Plan: possibly embolic recs plavix p.t f/u echo/carotid tele f/u lipid panel (2) HTN (hypertension) ICD Codes: I10 - Essential (primary) hypertension (3) Hyperlipidemia ICD Codes: E78.5 - Hyperlipidemia Status: Chronic Problem Qualifiers (1) HTN (hypertension): Qualified Codes: I10 - Essential (primary) hypertension Kwame Quinonez MD Apr 06, 2017 16:09
[2017-04-06] MEDS ORDERED: INSULIN ASPART SUPPLEMENTAL SCALE SQ SCH (17:00)
[2017-04-06] MEDS: HEPARIN SODIUM - SQ 10,000 UNITS/ML VIAL SQ SCH ×2 (17:23→23:50)
--- NOTE | 2017-04-06 17:36 | HHI.HP ---
HPI Service [facility] Hospitalists Primary Care Physician Unknown Admission Diagnosis CVA symptoms, left sided weakness and numbness Diagnoses: Chief Complaint: Left sided weakness Chest pain Travel History International Travel<30 Days: No Contact w/Intl Traveler <30 Da: No Traveled to Known Affected Are: No History of Present Illness Written by Dunia Rodriguez, acting as scribe for Dr. Velázquez on 04/06/17 at 17 :27. This is a 76yo female with PMHX of HTN, HLD, hypothyroidism and hx of CVA 2 yrs ago who presents to [facility] ED with complaints of left sided weakness x 1 day. Patient reports waking up around 2am with sudden onset of left sided weakness. Patient states she went to stand up but was unable to bear weight. She denies any headaches or acute vision changes. She endorses cough and some left sided chest pain with deep inspiration for the past 2-3 days. She denies any fever, chills or night sweats. She denies any nausea or vomiting. She reports episode of diarrhea several days ago but this has resolved. She does not feel her strength has improved since coming to the ED. She denies any slurred speech or facial asymmetry which is how she presented with her stroke from 2 years ago. She endorses left sided lower abdominal pain for many years that has recently increased in severity. She denies any shortness of breath. She denies any urinary complaints. In the ED, CT of the head was obtained showing no acute intracranial process. Review of Systems Except as stated in HPI: all other systems reviewed are Neg Past Family Social History Past Medical History HTN HLD Hx of CVA 2 yrs ago Hypothyroidism Past Surgical History Hysterectomy Left foot surgery Bladder lift Cataract surgery Left shoulder surgery Appendectomy Reported Medications Aspirin EC (Aspirin) 81 Mg Tabdr 81 Mg PO DAILY Allergies: Coded Allergies: butorphanol (Verified Allergy, Severe, RASH, 04/06/17) aspirin (Verified Allergy, Intermediate, Vertigo, 04/06/17) Uncoded Allergies: STEROIDS (Allergy, Mild, 04/11/16) . Active Ordered Medications Current Medications Medications (Trade) Dose Ordered Sig/Stanton Route Start Time Stop Time Status Last Admin (NS Flush) 2 ml BID IV FLUSH 04/06/17 21:00 (NS Flush) 2 ml UNSCH PRN IV FLUSH 04/06/17 14:00 (Vasotec Inj) 1.25 mg Q4H PRN IV PUSH 04/06/17 14:00 (Lipitor) 10 mg HS PO 04/06/17 21:00 (NovoLOG SUPPLEMENTAL SCALE) 1 ACHS SQ 04/06/17 17:00 (D50w (Vial) Inj) 50 ml UNSCH PRN IV PUSH 04/06/17 14:00 (Glucagon Inj) 1 mg UNSCH PRN OTHER 04/06/17 14:00 (Heparin Inj) 5,000 units Q8H SQ 04/06/17 14:00 04/06/17 17:23 Family History Brother and Sister, DM Social History Patient denies any tobacco use, EtOH consumption or illicit drug use. Physical Exam Vital Signs Vital Signs Date Time Temp Pulse Resp B/P (MAP) Pulse Ox O2 Delivery O2 Flow Rate FiO2 04/06/17 14:08 66 17 155/82 (106) 97 2.00 04/06/17 12:00 82 21 156/82 (106) 93 Nasal Cannula 2.00 04/06/17 11:41 97.7 87 22 209/111 (143) 95 Room Air Physical Exam GENERAL: This is a well-nourished, well-developed patient, in no apparent distress. Awake and alert. SKIN: No rashes, ecchymoses or lesions. Cool and dry. HEAD: Atraumatic. Normocephalic. No temporal or scalp tenderness. No facial asymmetry appreciated. EYES: Pupils equal round and reactive. Extraocular motions intact. No scleral icterus. No injection or drainage. ENT: Nose without bleeding or purulent drainage. Throat without erythema, tonsillar hypertrophy or exudate. Uvula midline. Tongue midline. Airway patent. NECK: Trachea midline. No lymphadenopathy. Supple, nontender, no meningeal signs. CARDIOVASCULAR: Regular rate and rhythm without murmurs, gallops, or rubs. RESPIRATORY: Clear to auscultation. Breath sounds equal bilaterally. No wheezes , rales, or rhonchi. GASTROINTESTINAL: Abdomen soft, non-tender, nondistended. No hepato-splenomegaly , or palpable masses. No guarding. MUSCULOSKELETAL: Extremities without clubbing, cyanosis, or edema. No joint tenderness, effusion, or edema noted. No calf tenderness. NEUROLOGICAL: Awake and alert. Cranial nerves II through XII intact. Left sided weakness 4/5 in upper and lower extremity. 5/5 in right upper and lower extremity. Sensory grossly intact throughout. Normal speech. Laboratory Laboratory Tests Test 04/06/17 12:05 04/06/17 12:50 White Blood Count 7.2 Red Blood Count 4.51 Hemoglobin 13.1 Hematocrit 39.7 Mean Corpuscular Volume 88.1 Mean Corpuscular Hemoglobin 29.1 Mean Corpuscular Hemoglobin Concent 33.0 Red Cell Distribution Width 13.0 Platelet Count 182 Mean Platelet Volume 9.5 Neutrophils (%) (Auto) 69.5 Lymphocytes (%) (Auto) 20.4 Monocytes (%) (Auto) 6.0 Eosinophils (%) (Auto) 3.5 Basophils (%) (Auto) 0.6 Neutrophils # (Auto) 5.0 Lymphocytes # (Auto) 1.5 Monocytes # (Auto) 0.4 Eosinophils # (Auto) 0.3 Basophils # (Auto) 0.0 CBC Comment DIFF FINAL Differential Comment Prothrombin Time 10.4 Prothromb Time International Ratio 0.9 Activated Partial Thromboplast Time 25.4 Blood Urea Nitrogen 14 Creatinine 0.79 Random Glucose 143 Total Protein 7.2 Albumin 3.2 Calcium Level 9.3 Magnesium Level 2.0 Alkaline Phosphatase 83 Aspartate Amino Transf (AST/SGOT) 36 Alanine Aminotransferase (ALT/SGPT) 44 Total Bilirubin 0.3 Sodium Level 141 Potassium Level 3.5 Chloride Level 106 Carbon Dioxide Level 28.3 Anion Gap 7 Estimat Glomerular Filtration Rate 71 Total Creatine Kinase 59 Troponin I 0.02 Thyroid Stimulating Hormone 3rd Gen 2.080 Urine Color LIGHT-YELLOW Urine Turbidity CLEAR Urine pH 6.0 Urine Specific [place] 1.004 Urine Protein NEG Urine Glucose (UA) NEG Urine Ketones NEG Urine Occult Blood NEG Urine Nitrite NEG Urine Bilirubin NEG Urine Urobilinogen LESS THAN 2.0 Urine Leukocyte Esterase NEG Urine RBC LESS THAN 1 Urine WBC LESS THAN 1 Urine Transitional Epithelial Cells <1 Microscopic Urinalysis Comment CULT NOT INDICATED Result Diagram: 04/06/17 1205 04/06/17 1205 Imaging Last Impressions Head CT 04/06/17 1205 Signed Impressions: Service Date/Time: Thursday, April 06, 2017 12:15 - CONCLUSION: 1. No focal or acute intracranial hemorrhage. 2. Stable old infarct in the left basal ganglia. 3. Moderate bilateral chronic white matter changes characteristic of patients age. Mike Camara MD Chest X-Ray 04/06/17 1205 Signed Impressions: Service Date/Time: Thursday, April 06, 2017 12:36 - CONCLUSION: No acute disease. No significant change has occurred. MD Chika Dickinson VTE Risk Assessment Caprini VTE Risk Assessment: Mod/High Risk (score >= 2) Caprini Risk Assessment Model Point Value = 1 Point Value = 2 Point Value = 3 Point Value = 5 Age 41-60 Minor surgery BMI > 25 kg/m2 Swollen legs Varicose veins or History of unexplained or recurrent spontaneous Oral contraceptives or hormone replacement Sepsis (< 1 month) Serious lung disease, including pneumonia (< 1 month) Abnormal pulmonary function Acute myocardial infarction Congestive heart failure (< 1 month) History of inflammatory bowel disease Medical patient at bed rest Age 61-74 Arthroscopic surgery Major open surgery (> 45 min) Laparoscopic surgery (> 45 min) Malignancy Confined to bed (> 72 hours) Immobilizing plaster cast Central venous access Age >= 75 History of VTE Family history of VTE Factor V Leiden Prothrombin [id number] Lupus anticoagulant Anticardiolipin antibodies Elevated serum homocysteine Heparin-induced thrombocytopenia Other congenital or acquired thrombophilia Stroke (< 1 month) Elective arthroplasty Hip, pelvis, or leg fracture Acute spinal cord injury (< 1 month) Prophylaxis Regimen Total Risk Factor Score Risk Level Prophylaxis Regimen 0-1 Low Early ambulation 2 Moderate Order ONE of the following: *Sequential Compression Device (SCD) *Heparin 5000 units SQ BID 3-4 Higher Order ONE of the following medications: *Heparin 5000 units SQ TID *Enoxaparin/Lovenox 40 mg SQ daily (WT < 150 kg, CrCl > 30 mL/min) *Enoxaparin/Lovenox 30 mg SQ daily (WT < 150 kg, CrCl > 10-29 mL/min) *Enoxaparin/Lovenox 30 mg SQ BID (WT < 150 kg, CrCl > 30 mL/min) AND/OR *Sequential Compression Device (SCD) 5 or more Highest Order ONE of the following medications: *Heparin 5000 units SQ TID (Preferred with Epidurals) *Enoxaparin/Lovenox 40 mg SQ daily (WT < 150 kg, CrCl > 30 mL/min) *Enoxaparin/Lovenox 30 mg SQ daily (WT < 150 kg, CrCl > 10-29 mL/min) *Enoxaparin/Lovenox 30 mg SQ BID (WT < 150 kg, CrCl > 30 mL/min) AND *Sequential Compression Device (SCD) Assessment and Plan Assessment and Plan 76yo female with PMHX of HTN, HLD, hypothyroidism and hx of CVA 2 yrs ago who presents to [facility] ED with complaints of left sided weakness x 1 day. CVA/TIA - Consult Neurology - Consult rehab medicine - CT head personally reviewed and shows stable old infarct left basal ganglia. - Neuro checks q4h - seizure precautions - Obtain Carotid US, Brain MRI and Head MRA. - Obtain Echocardiogram - Obtain lipid panel, hgb A1c - TSH 2.080 - continuous cardiac monitoring - NPO for now - bedside swallow evaluation ordered - PT/OT/ST eval/tx - begin Lipitor 10mg - ASA daily Chest pain, atypical - initial troponin 0.02 - CXR personally reviewed and shows no acute process - doubt ACS but will r/o with serial cardiac enzymes - EKG personally reviewed showing normal sinus rhythm with no e/o ischemia - supplemental oxygen as needed HTN - accelerated at admission. Improved - allow permissive HTN secondary to CVA/TIA - Vasotec 1.25mg OV q4h prn SBP>220, DBP>120 - patient not on any antihypertensives at home - monitor and will consider starting treatment if indicated HLD - obtain lipid panel - started on Lipitor 10mg empirically for CVA/TIA Elevated blood sugar - no personal hx of DM but strong FMHX of DM - obtain HgbA1c Hypothyroidism - patient not on any meds at home per med rec - TSH WNL DVT prophylaxis - bilateral SCD/JOHN hose - Heparin sq This note was transcribed by xi Rodriguez. I, Dr. Yovani Velázquez personally performed the history, physical exam, and medical decision making; and confirmed the accuracy of the information in the transcribed note. Authenticated by Dr. Yovani Velázquez on 04/06/17 at 18:04. Discussed Condition With ED physician, patient, nursing staff Dunia Rodriguez Apr 06, 2017 17:36 Yovani Velázquez MD Apr 06, 2017 18:04
--- NOTE | 2017-04-06 17:37 | RADRPT ---
EXAM DATE/TIME: 04/06/2017 16:08 [facility] COMPARISON: MRI BRAIN W/O CONTRAST, March 30, 2014, 11:52. INDICATIONS : CVA. Left sided weakness. Slurred speech. MEDICAL HISTORY : Hypertension. SURGICAL HISTORY : Hysterectomy. Foot. Shoulder. ENCOUNTER: Subsequent ACUITY: 1 day PAIN SCORE: 3/10 LOCATION: cranial TECHNIQUE: Multiplanar, multisequence MRI of the brain was performed without contrast. FINDINGS: CEREBRUM: There is moderate generalized cerebral atrophy and ventricles are normal. No midline shift, mass lesi on, or hemorrhage. No extraaxial fluid collections are seen. The pituitary gland and suprasellar ci mckeon are normal in configuration. WHITE MATTER: There is severe periventricular and subcortical white matter signal change bilaterally. POSTERIOR FOSSA: The cerebellum and brainstem demonstrate no acute finding. The 4th ventricle is midline. The cerebel lopontine angle is unremarkable. The cerebellar tonsils are normal in position. DIFFUSION IMAGING: There is a linear band of increased diffusion signal and decreased ADC signal in the right centrum se miovale region in the subcortical white matter. No other restricted diffusion is identified. EXTRACRANIAL: The visualized portions of the orbits and paranasal sinuses are unremarkable. CONCLUSION: 1. 10 mm linear band of restricted diffusion in the right frontoparietal high convexity indicating re cent ischemia. 2. Severe periventricular and subcortical white matter signal change characteristic of chronic ischem ic demyelinization. Asa Laguerre MD on April 06, 2017 at 17:31 Board Certified Radiologist. This report was verified electronically.
--- NOTE | 2017-04-06 17:42 | RADRPT ---
EXAM DATE/TIME: 04/06/2017 16:08 [facility] COMPARISON: MRA BRAIN W/O CONTRAST, March 30, 2014, 11:52. INDICATIONS : Stroke. Left sided weakness. Slurred speech. MEDICAL HISTORY : Hypertension. SURGICAL HISTORY : Hysterectomy. Foot. Shoulder. ENCOUNTER: Subsequent ACUITY: 1 day PAIN SCORE: 3/10 LOCATION: cranial Please note a normal MRA of the brain does not entirely exclude the possibility of a small aneurysm, nor the possibility of distal intracranial vessel disease. TECHNIQUE: 3D time of flight MRA was performed. Source images, multiplanar STS MIP, and 3D volume MIP reconstru ctions were reviewed. FINDINGS: Anterior circulation: The internal carotid arteries demonstrate no abnormality or atherosclerotic change. A1 segments and m ore distal anterior cerebral arteries are symmetric and within normal limits. The middle cerebral art tyrel branches demonstrate symmetric flow related enhancement. No aneurysm or high-grade stenosis is id entified. There is persistent circulation bilaterally. Posterior circulation: There are patent posterior cerebral arteries bilaterally. Vertebral arteries are codominant. The basi lar artery and posterior cerebral arteries demonstrate no significant stenosis or abnormality. No ane urysm is visualized. CONCLUSION: No acute intracranial vascular abnormality is identified. Asa Laguerre MD on April 06, 2017 at 17:37 Board Certified Radiologist. This report was verified electronically.
--- NOTE | 2017-04-06 19:50 | HHI.PR ---
Subjective Remarks NOT SEEN Objective Vitals Vital Signs Date Time Temp Pulse Resp B/P (MAP) Pulse Ox O2 Delivery O2 Flow Rate FiO2 04/06/17 15:13 97.5 84 18 159/82 (107) 95 04/06/17 14:08 66 17 155/82 (106) 97 2.00 04/06/17 12:00 82 21 156/82 (106) 93 Nasal Cannula 2.00 04/06/17 11:41 97.7 87 22 209/111 (143) 95 Room Air Result Diagram: 04/06/17 1205 04/06/17 1205 Imaging Last Impressions Head CT 04/06/17 1205 Signed Impressions: Service Date/Time: Thursday, April 06, 2017 12:15 - CONCLUSION: 1. No focal or acute intracranial hemorrhage. 2. Stable old infarct in the left basal ganglia. 3. Moderate bilateral chronic white matter changes characteristic of patients age. Mike Camara MD Chest X-Ray 04/06/17 1205 Signed Impressions: Service Date/Time: Thursday, April 06, 2017 12:36 - CONCLUSION: No acute disease. No significant change has occurred. Mike Camara MD Head Magnetic Resonance Angiography 04/06/17 0000 Signed Impressions: Service Date/Time: Thursday, April 06, 2017 16:08 - CONCLUSION: No acute intracranial vascular abnormality is identified. Asa Laguerre MD Brain MRI 04/06/17 0000 Signed Impressions: Service Date/Time: Thursday, April 06, 2017 16:08 - CONCLUSION: 1. 10 mm linear band of restricted diffusion in the right frontoparietal high convexity indicating recent ischemia. 2. Severe periventricular and subcortical white matter signal change characteristic of chronic ischemic demyelinization. Asa Laguerre MD Objective Remarks GENERAL: This is a well-nourished, well-developed patient, in no apparent distress. Awake and alert. SKIN: No rashes, ecchymoses or lesions. Cool and dry. HEAD: Atraumatic. Normocephalic. No temporal or scalp tenderness. No facial asymmetry appreciated. EYES: Pupils equal round and reactive. Extraocular motions intact. No scleral icterus. No injection or drainage. ENT: Nose without bleeding or purulent drainage. Throat without erythema, tonsillar hypertrophy or exudate. Uvula midline. Tongue midline. Airway patent. NECK: Trachea midline. No lymphadenopathy. Supple, nontender, no meningeal signs. CARDIOVASCULAR: Regular rate and rhythm without murmurs, gallops, or rubs. RESPIRATORY: Clear to auscultation. Breath sounds equal bilaterally. No wheezes , rales, or rhonchi. GASTROINTESTINAL: Abdomen soft, non-tender, nondistended. No hepato-splenomegaly , or palpable masses. No guarding. MUSCULOSKELETAL: Extremities without clubbing, cyanosis, or edema. No joint tenderness, effusion, or edema noted. No calf tenderness. NEUROLOGICAL: Awake and alert. Cranial nerves II through XII intact. Left sided weakness 4/5 in upper and lower extremity. 5/5 in right upper and lower extremity. Sensory grossly intact throughout. Normal speech. A/P Problem List: (1) Acute ischemic right MCA stroke ICD Code: I63.511 - Cerebral infarction due to unspecified occlusion or stenosis of right middle cerebral artery Status: Acute Assessment and Plan 76yo female with PMHX of HTN, HLD, hypothyroidism and hx of CVA 2 yrs ago who presents to [facility] ED with complaints of left sided weakness x 1 day. CVA/TIA - Consult Neurology - Consult rehab medicine - CT head personally reviewed and shows stable old infarct left basal ganglia. - Neuro checks q4h - seizure precautions - Obtain Carotid US, Brain MRI and Head MRA. - Obtain lipid panel, hgb A1c - TSH 2.080 - continuous cardiac monitoring - NPO for now - bedside swallow evaluation ordered - PT/OT/ST eval/tx - begin Lipitor 10mg - ASA daily Chest pain, atypical - initial troponin 0.02 - CXR personally reviewed and shows no acute process - doubt ACS but will r/o with serial cardiac enzymes - EKG personally reviewed showing normal sinus rhythm with no e/o ischemia - supplemental oxygen as needed HTN - accelerated at admission. Improved - allow permissive HTN secondary to CVA/TIA - Vasotec 1.25mg OV q4h prn SBP>220, DBP>120 - patient not on any antihypertensives at home - monitor and will consider starting treatment if indicated HLD - obtain lipid panel - started on Lipitor 10mg empirically for CVA/TIA Elevated blood sugar - no personal hx of DM but strong FMHX of DM - obtain HgbA1c Hypothyroidism - patient not on any meds at home per med rec - TSH WNL DVT prophylaxis - bilateral SCD/JOHN hose - Heparin sq Stanislaw Miller MD Apr 06, 2017 19:50
[2017-04-06] MEDS ORDERED: CALCIUM CARBONATE 500 MG CHEWABLE TAB CHEW PRN (20:00)
[2017-04-06] MEDS ORDERED: DOCUSATE SODIUM 50 MG/SENNA 8.6 MG TAB PO PRN (20:00)
[2017-04-06] MEDS ORDERED: ACETAMINOPHEN 325 MG TAB PO PRN (20:00)
[2017-04-06 20:44] VITALS: BP 151/85; PULSE 88; RESP 18; TEMP 98; O2SAT 93
[2017-04-06] MEDS: INSULIN ASPART SUPPLEMENTAL SCALE SQ SCH (21:00)
[2017-04-06] MEDS: ATORVASTATIN 10 MG TAB PO SCH (21:00)
[2017-04-06] MEDS: SODIUM CHLORIDE 0.9% FLUSH 5 ML FLUSH IV FLUSH SCH (21:00)
--- NOTE | 2017-04-06 23:24 | RADRPT ---
EXAM DATE/TIME: 04/06/2017 22:43 [facility] COMPARISON: US CAROTID ARTERIES, March 29, 2014, 14:37. INDICATIONS : Cerebrovascular accident. MEDICAL HISTORY : Hypertension. Hypercholesterolemia. Cataracts. Glaucoma. CVA. Coronary artery disease. Anticoagulan t therapy. Arthritis. SURGICAL HISTORY : Hysterectomy. Cholecystectomy. Appendectomy. Bladder tuck. Left shoulder surgery. Tumor and bone rivas ow removed from left foot. ENCOUNTER: Subsequent ACUITY: 1 day PAIN SCORE: 0/10 LOCATION: Bilateral neck PEAK SYSTOLIC VELOCITIES (cm/sec): ICA/CCA RATIO: Right: 0.5 Left: 1.2 ICA: Right: 67 Left: 88 CCA: Right: 113 Left: 75 ECA: Right: 53 Left: 47 VERTEBRAL: Right: 34 antegrade Left: 43 antegrade Elevated flow velocities and ICA/CCA ratios have been found to correlate with increased degrees of vessel stenosis, calculated as percentage of diameter relative to a normal segment of distal ICA/CCA FINDINGS: RIGHT CAROTID: No significant stenosis is visualized. The waveforms are within normal limits. LEFT CAROTID: No significant stenosis is visualized. The waveforms are within normal limits. VERTEBRAL ARTERIES: Antegrade flow is seen in both vertebral arteries. MISCELLANEOUS: None. CONCLUSION: 1. No evidence of hemodynamically significant lesion. Marco Rodriguez MD on April 06, 2017 at 23:22 Board Certified Radiologist. This report was verified electronically.
[2017-04-06 23:45] VITALS: BP 157/76; PULSE 79; RESP 18; TEMP 98; O2SAT 94
[2017-04-07] VITALS (11 sets, daily range): BP systolic 143–161; BP diastolic 81–88; PULSE 75–94; RESP 18–20; TEMP 97.5–98.5; O2SAT 91–96
[2017-04-07 04:36] LABS: CREATINE KINASE 66 U/L (26-192); HDL CHOLESTEROL 61.9 MG/DL (40.0-60.0); LDL CHOLESTEROL 103 MG/DL (0-99)
[2017-04-07] MEDS: HEPARIN SODIUM - SQ 10,000 UNITS/ML VIAL SQ SCH ×3 (05:48→22:04)
--- NOTE | 2017-04-07 07:45 | HHI.PR ---
Review/Management Diagnosis/Plan: (1) Acute ischemic right MCA stroke ICD Codes: I63.511 - Cerebral infarction due to unspecified occlusion or stenosis of right middle cerebral artery Status: Acute Plan: possibly embolic imaging reviewed with pt recs neuro stable states she couldn't tolerate plavix in the past; will change to aggrenox. s/b d/ w pt bp/lipid/bs control statin p.t f/u echo d/c planning to rehab from neuro cardio eval for loop recorder with recurrent strokes and normal vascular imaging tele (2) HTN (hypertension) ICD Codes: I10 - Essential (primary) hypertension (3) Hyperlipidemia ICD Codes: E78.5 - Hyperlipidemia Status: Chronic Subjective Subjective Comments No acute events reported No headache No chest pain No dyspnea Active Medications Current Medications Medications (Trade) Dose Ordered Sig/[place] Route Start Time Stop Time Status Last Admin (NS Flush) 2 ml BID IV FLUSH 04/06/17 21:00 04/06/17 21:00 (NS Flush) 2 ml UNSCH PRN IV FLUSH 04/06/17 14:00 (Vasotec Inj) 1.25 mg Q4H PRN IV PUSH 04/06/17 14:00 (Lipitor) 10 mg HS PO 04/06/17 21:00 (D50w (Vial) Inj) 50 ml UNSCH PRN IV PUSH 04/06/17 14:00 (Glucagon Inj) 1 mg UNSCH PRN OTHER 04/06/17 14:00 (Heparin Inj) 5,000 units Q8H SQ 04/06/17 14:00 04/07/17 05:48 (Ecotrin Ec) 81 mg DAILY PO 04/07/17 09:00 (NovoLOG SUPPLEMENTAL SCALE) 1 ACHS SQ 04/06/17 21:00 (Tylenol) 650 mg Q4H PRN PO 04/06/17 20:00 (Zofran Inj) 4 mg Q6H PRN IV PUSH 04/06/17 20:00 ([place]-Colace) 1 tab BID PRN PO 04/06/17 20:00 (Tums Chew) 1,000 mg TID PRN CHEW 04/06/17 20:00 Allergies Allergies Coded Allergies butorphanol (Verified Allergy, Severe, RASH, 04/06/17) aspirin (Verified Allergy, Intermediate, Vertigo, 04/06/17) Uncoded Allergies STEROIDS ( Allergy, Mild, 04/11/16) Review of Systems All other ROS: ROS reviewed as documented in chart Exam I&O / VS Vital Signs Date Time Temp Pulse Resp B/P (MAP) Pulse Ox O2 Delivery O2 Flow Rate FiO2 04/07/17 04:02 75 04/07/17 03:33 98.0 82 18 161/81 (107) 95 04/07/17 00:00 91 04/06/17 23:45 98.0 79 18 157/76 (103) 94 04/06/17 20:44 98.0 88 18 151/85 (107) 93 04/06/17 15:13 97.5 84 18 159/82 (107) 95 04/06/17 14:08 66 17 155/82 (106) 97 2.00 04/06/17 12:00 82 21 156/82 (106) 93 Nasal Cannula 2.00 04/06/17 11:41 97.7 87 22 209/111 (143) 95 Room Air General: Alert and Oriented, No acute distress Eye: PERRL Cardiology: Normal rate Musculoskeletal: ROM Neurologic: Alert, Oriented, Gag reflex normal, Normal DTR's Psychiatric: Cooperative, Appropriate mood & affect, Normal judgement Exam Comments ox 3, follows, left hemisensory with mild left dystaxia/weakness Objective Micro and Labs Laboratory Tests Test 04/06/17 12:05 04/06/17 12:50 04/06/17 20:50 04/07/17 03:35 White Blood Count 7.2 Red Blood Count 4.51 Hemoglobin 13.1 Hematocrit 39.7 Mean Corpuscular Volume 88.1 Mean Corpuscular Hemoglobin 29.1 Mean Corpuscular Hemoglobin Concent 33.0 Red Cell Distribution Width 13.0 Platelet Count 182 Mean Platelet Volume 9.5 Neutrophils (%) (Auto) 69.5 Lymphocytes (%) (Auto) 20.4 Monocytes (%) (Auto) 6.0 Eosinophils (%) (Auto) 3.5 Basophils (%) (Auto) 0.6 Neutrophils # (Auto) 5.0 Lymphocytes # (Auto) 1.5 Monocytes # (Auto) 0.4 Eosinophils # (Auto) 0.3 Basophils # (Auto) 0.0 CBC Comment DIFF FINAL Differential Comment Prothrombin Time 10.4 Prothromb Time International Ratio 0.9 Activated Partial Thromboplast Time 25.4 Blood Urea Nitrogen 14 Creatinine 0.79 Random Glucose 143 Total Protein 7.2 Albumin 3.2 Calcium Level 9.3 Magnesium Level 2.0 Alkaline Phosphatase 83 Aspartate Amino Transf (AST/SGOT) 36 Alanine Aminotransferase (ALT/SGPT) 44 Total Bilirubin 0.3 Sodium Level 141 Potassium Level 3.5 Chloride Level 106 Carbon Dioxide Level 28.3 Anion Gap 7 Estimat Glomerular Filtration Rate 71 Total Creatine Kinase 59 57 66 Troponin I 0.02 0.03 0.03 Thyroid Stimulating Hormone 3rd Gen 2.080 Urine Color LIGHT-YELLOW Urine Turbidity CLEAR Urine pH 6.0 Urine Specific [place] 1.004 Urine Protein NEG Urine Glucose (UA) NEG Urine Ketones NEG Urine Occult Blood NEG Urine Nitrite NEG Urine Bilirubin NEG Urine Urobilinogen LESS THAN 2.0 Urine Leukocyte Esterase NEG Urine RBC LESS THAN 1 Urine WBC LESS THAN 1 Urine Transitional Epithelial Cells <1 Microscopic Urinalysis Comment CULT NOT INDICATED Triglycerides Level 164 Cholesterol Level 198 LDL Cholesterol 103 HDL Cholesterol 61.9 Cholesterol/HDL Ratio 3.19 Vitamin B12 Level 198 Problem Qualifiers (1) HTN (hypertension): Qualified Codes: I10 - Essential (primary) hypertension Kwame Quinonez MD Apr 07, 2017 07:45
[2017-04-07] MEDS: INSULIN ASPART SUPPLEMENTAL SCALE SQ SCH ×4 (08:00→21:00)
--- NOTE | 2017-04-07 08:59 | MB ---
cc: LETICIA DOMINGUEZ M.D. DATE OF CONSULTATION: 04/07/2017 REASON FOR CONSULTATION Transesophageal echocardiography, consideration of implantation of a loop recorder. HISTORY OF PRESENT ILLNESS The patient is a 76-year-old white female, followed in our office by Dr. Anthony Mayes, with a history of hypertension, hyperlipidemia, hypothyroidism, CVA 2 years ago, who presented to the hospital with left-sided weakness and numbness. Brain MRI has shown a 10 mm linear band of restricted diffusion in the right frontal parietal high convexity indicating recent ischemia. The patient reports no significant cardiovascular symptoms. Very rarely she experiences fleeting chest pains. For the most part she is sedentary. She denies palpitations, pedal edema, paroxysmal nocturnal dyspnea, syncope, near-syncope. PAST MEDICAL HISTORY 1. Hypertension. 2. Hyperlipidemia. 3. Hypothyroidism. 4. CVA 2 years ago. MEDICATIONS Her cardiac medications at home: Aspirin 81 mg q. day. FAMILY HISTORY Noncontributory. SOCIAL HISTORY The patient denies any history of alcohol or tobacco abuse. REVIEW OF SYSTEMS As in the history of present illness, otherwise negative or noncontributory. She also denies abdominal pain, melena, dyspepsia, bright red blood per rectum, cough, wheezing. For the past few days she has had a mild to moderate left-sided headache. PHYSICAL EXAMINATION VITAL SIGNS: On physical examination her blood pressure is 143/84 with a pulse of 82, respirations 20. GENERAL: In general she is a well-developed, well-nourished white female in no acute distress. HEENT/NECK: Jugular venous pressure is normal. Carotid pulses are 2+ bilaterally and without bruits. CHEST: Examination of the chest reveals unlabored respiratory effort with clear lung reeder. CARDIAC: On cardiac examination she has a regular rhythm and rate without S3, S4, or murmur. ABDOMEN: On abdominal examination she has a soft, obese, nontender abdomen. Bowel sounds are present. There is no definite hepatosplenomegaly. EXTREMITIES: Examination of extremities reveals no clubbing, cyanosis or edema. LABORATORY Laboratory data includes normal CBC, normal basic metabolic profile except for glucose 143, negative cardiac enzymes, total cholesterol 198, LDL 103, HDL 62, triglycerides 164. EKG EKG shows sinus rhythm, nonspecific T-wave abnormality. IMPRESSION Recurrent CVA in this 76-year-old white female with a history of hypertension, hyperlipidemia, hypothyroidism, CVA 2 years ago. I have been asked to see the patient for transesophageal echocardiography. I have also been asked to consider loop recorder implantation. At this point I would agree with the need for a transesophageal echo to rule out a cardiac source of embolism. The nature of this procedure and potential risks have been outlined to the patient who agrees to proceed. With respect to the loop recorder, I have found that it can have somewhat poor P-wave sensitivity, and rhythms such as sinus arrhythmia or sinus rhythm with premature atrial complexes will appear to be atrial fibrillation. RECOMMENDATIONS 1. Transesophageal echocardiogram this afternoon. 2. Would recommend a three-week monitor as an outpatient rather than proceeding with a loop recorder at this time for reasons as above. Leticia Dominguez MD GHKd/NAIF /8:40 AM /8:51 AM [facility]
[2017-04-07] MEDS ORDERED: ASPIRIN EC 81 MG TABEC PO SCH (09:00)
--- NOTE | 2017-04-07 10:02 | EKG ---
Date Performed: 04/06/2017 Time Performed: 12:59:22 PTAGE: 76 years EKG: Sinus rhythm MINIMAL VOLTAGE CRITERIA FOR LVH, CONSIDER NORMAL VARIANT NONSPECIFIC T-WAVE ABNORMALITY BORDERLINE ECG PREVIOUS TRACING : 07/09/2014 20.19 DOCTOR: Brandon Gifford Interpretating Date/Time 04/07/2017 10:01:01
[2017-04-07] MEDS: SODIUM CHLORIDE 0.9% FLUSH 5 ML FLUSH IV FLUSH SCH ×2 (12:48→21:00)
[2017-04-07] MEDS: DIPYRIDAMOLE/ASPIRIN 200 MG/25 MG CAP PO SCH ×2 (12:48→22:03)
--- NOTE | 2017-04-07 13:35 | HHI.PR ---
Subjective Remarks Follow-up CVA. Patient has no symptoms. Refused statin history of intolerance to Lipitor. Also does not want to go to fdc facility, lives with who receives hemodialysis. Discussed with RN Objective Vitals Vital Signs Date Time Temp Pulse Resp B/P (MAP) Pulse Ox O2 Delivery O2 Flow Rate FiO2 04/07/17 11:44 97.5 79 20 159/83 (108) 91 04/07/17 09:25 80 04/07/17 08:17 93 21 04/07/17 07:48 98.1 82 20 143/84 (103) 93 04/07/17 04:02 75 04/07/17 03:33 98.0 82 18 161/81 (107) 95 04/07/17 00:00 91 04/06/17 23:45 98.0 79 18 157/76 (103) 94 04/06/17 20:44 98.0 88 18 151/85 (107) 93 04/06/17 15:13 97.5 84 18 159/82 (107) 95 04/06/17 14:08 66 17 155/82 (106) 97 2.00 I/O 04/06/17 04/06/17 04/06/17 04/07/17 04/07/17 04/07/17 07:00 15:00 23:00 07:00 15:00 23:00 Intake Total 0 ml Balance 0 ml Intake Oral 0 ml # Voids 1 # Bowel Movements 0 Result Diagram: 04/06/17 1205 04/06/17 1205 Imaging Last Impressions Head CT 04/06/17 1205 Signed Impressions: Service Date/Time: Thursday, April 06, 2017 12:15 - CONCLUSION: 1. No focal or acute intracranial hemorrhage. 2. Stable old infarct in the left basal ganglia. 3. Moderate bilateral chronic white matter changes characteristic of patients age. Mike Camara MD Chest X-Ray 04/06/17 1205 Signed Impressions: Service Date/Time: Thursday, April 06, 2017 12:36 - CONCLUSION: No acute disease. No significant change has occurred. Mike Camara MD Head Magnetic Resonance Angiography 04/06/17 0000 Signed Impressions: Service Date/Time: Thursday, April 06, 2017 16:08 - CONCLUSION: No acute intracranial vascular abnormality is identified. Asa Laguerre MD Carotid Artery Ultrasound 04/06/17 0000 Signed Impressions: Service Date/Time: Thursday, April 06, 2017 22:43 - CONCLUSION: 1. No evidence of hemodynamically significant lesion. Marco Rodriguez MD Brain MRI 04/06/17 0000 Signed Impressions: Service Date/Time: Thursday, April 06, 2017 16:08 - CONCLUSION: 1. 10 mm linear band of restricted diffusion in the right frontoparietal high convexity indicating recent ischemia. 2. Severe periventricular and subcortical white matter signal change characteristic of chronic ischemic demyelinization. Asa Laguerre MD Objective Remarks GENERAL: This is a well-nourished, well-developed patient, in no apparent distress. SKIN: No rashes, ecchymoses or lesions. Cool and dry. CARDIOVASCULAR: Regular rate and rhythm without murmurs, gallops, or rubs. RESPIRATORY: Clear to auscultation. Breath sounds equal bilaterally. No wheezes , rales, or rhonchi. GASTROINTESTINAL: Abdomen soft, non-tender, nondistended. No guarding. MUSCULOSKELETAL: Extremities without clubbing, cyanosis, or edema. No joint tenderness, effusion, or edema noted. No calf tenderness. NEUROLOGICAL: Awake and alert. Cranial nerves II through XII intact. Left sided weakness 4/5 in upper and lower extremity. 5/5 in right upper and lower extremity. Sensory grossly intact throughout. Normal speech. A/P Problem List: (1) Acute ischemic right MCA stroke ICD Code: I63.511 - Cerebral infarction due to unspecified occlusion or stenosis of right middle cerebral artery Status: Acute Assessment and Plan 76yo female with PMHX of HTN, HLD, hypothyroidism and hx of CVA 2 yrs ago who presents to [facility] ED with complaints of left sided weakness x 1 day. CVA with left-sided weakness. - Consult Neurology - Consult rehab medicine - CT head personally reviewed and shows stable old infarct left basal ganglia. - Neuro checks q4h - seizure precautions - Obtained Carotid US, Brain MRI and Head MRA. - Obtained lipid panel, hgb A1c. Refused Lipitor history of intolerance - TSH 2.080 - continuous cardiac monitoring - PT/OT/ST eval/tx - begin Lipitor 10mg - ASA switch to Aggrenox by neurology monitor for tolerance -Cardiology has been consulted for loop recorder. Recommends to monitor and YURY and consult echocardiogram Chest pain, atypical - initial troponin 0.02 - CXR personally reviewed and shows no acute process - doubt ACS ruled out for [place] - EKG personally reviewed showing normal sinus rhythm with no e/o ischemia - supplemental oxygen as needed HTN - accelerated at admission. Improved - allow permissive HTN secondary to CVA - IV Vasotec and by mouth clonidine for blood pressure more than 180/100 - patient not on any antihypertensives at home - monitor and will consider starting treatment if indicated HLD -As above Elevated blood sugar - no personal hx of DM but strong FMHX of DM - obtain HgbA1c Hypothyroidism - patient not on any meds at home per med rec - TSH WNL DVT prophylaxis - bilateral SCD/JOHN hose - Heparin sq Discharge Planning Needs rehabilitation but patient refusing. Will set up for [facility] Stanislaw Miller MD Apr 07, 2017 13:35
[2017-04-07] MEDS: ONDANSETRON HCL 4 MG/2 ML VIAL IV PUSH PRN (14:21)
[2017-04-07] MEDS ORDERED: PROPOFOL 200 MG/20 ML AMP ONE ×2 (15:10)
[2017-04-07] MEDS ORDERED: ePHEDrine/NS 25 MG/5 ML SYR ONE (15:10)
[2017-04-07] MEDS ORDERED: cloNIDine HCL 0.1 MG TAB PO PRN (16:30)
[2017-04-07] MEDS ORDERED: ENALAPRILAT 1.25 MG/ML VIAL IV PUSH PRN (16:30)
--- NOTE | 2017-04-07 16:37 | HHI.DCPOC ---
Discharge Care Plan Diagnosis: (1) Acute ischemic right MCA stroke Your Health Problems Are: Difficulty with ADL Exercise Tolerance Goals to Promote Your Health * To prevent worsening of your condition and complications * To maintain your health at the optimal level Directions to Meet Your Goals Take your medications as prescribed Follow your dietary instruction Follow activity as directed Keep your appointments as scheduled Take your immunizations and boosters as scheduled If your symptoms worsen call your PCP, if no PCP go to Urgent Care Center or Emergency Room Smoking is Dangerous to Your Health. Avoid second hand smoke Call the 24-hour hour crisis hotline for domestic abuse at Stanislaw Miller MD Apr 07, 2017 16:37
--- NOTE | 2017-04-07 16:38 | HHI.FF ---
Face to Face Verification Diagnosis: (1) Acute ischemic right MCA stroke Physical Therapy Order: Evaluate and Treat, Improve ambulation, Strength and gait training Home Health Nursing Order: Medical education Signs/symptoms of disease process Medication education-adverse effect Nursing assessment with vital signs I have seen patient Cynthia Barajas on 04/07/17. My clinical findings support the need for the requested home health care services because: Deconditioned w/ increased weakness I certify that my clinical findings support that this patient is homebound because: Unsteady gait/balance Unsafe to leave home unassisted Stanislaw Miller MD Apr 07, 2017 16:38
[2017-04-07 17:04] LABS: HEMOGLOBIN Ao 83.6 %; HEMOGLOBIN F 1.2 %; HEMOGLOBIN LA1C 2.2 %; HEMOGLOBIN P3 4.2 %
--- NOTE | 2017-04-07 19:08 | ECHRPT ---
Indication: CVA/TIA CONCLUSIONS Normal transesophageal echocardiogram. No cardiac source of embolism or intracardiac shunt is seen. BP: / HR: Rhythm: Technical Quality: Medications Complications Proc. Components FINDINGS LEFT VENTRICLE Normal left ventricular size and wall thickness. The left ventricular systolic function is normal wi th an estimated ejection fraction in the range of 60-65%. Left ventricular diastolic function parameters a re normal. RIGHT VENTRICLE Normal right ventricular size and systolic function. LEFT ATRIUM The left atrial size is normal. RIGHT ATRIUM The right atrial size is normal. ATRIAL SEPTUM Normal atrial septal thickness without atrial level shunting by limited color doppler interrogation. AORTA The aortic root and proximal ascending aorta are normal in size on limited imaging. MITRAL VALVE Structurally normal mitral valve. No mitral valve stenosis or regurgitation. AORTIC VALVE Trileaflet aortic valve. No aortic valve stenosis or regurgitation. TRICUSPID VALVE Structurally normal tricuspid valve. No tricuspid valve stenosis or regurgitation. VESSELS The inferior vena cava is normal in size. PULMONARY VALVE The pulmonary valve is not well visualized. PERICADIUM No pericardial effusion. Garrett Donahue MD (Electronically Signed) Final Date:07 April 2017 19:07
[2017-04-07] MEDS: ATORVASTATIN 10 MG TAB PO SCH (22:03)
[2017-04-08] VITALS (12 sets, daily range): BP systolic 126–146; BP diastolic 66–85; PULSE 68–91; RESP 18–30; TEMP 95.8–98.8; O2SAT 90–93
[2017-04-08] MEDS ORDERED: ACETAMINOPHEN/HYDROcodone 325 MG/5 MG TAB PO ONE (02:30)
[2017-04-08] MEDS: HEPARIN SODIUM - SQ 10,000 UNITS/ML VIAL SQ SCH ×3 (06:05→21:42)
[2017-04-08] MEDS: INSULIN ASPART SUPPLEMENTAL SCALE SQ SCH ×4 (08:00→21:00)
--- NOTE | 2017-04-08 08:53 | HHI.PR ---
Review/Management Diagnosis/Plan: (1) Acute ischemic right MCA stroke ICD Codes: I63.511 - Cerebral infarction due to unspecified occlusion or stenosis of right middle cerebral artery Status: Acute Plan: possibly embolic imaging reviewed with pt recs neuro stable tolerating aggrenox appreciate cardiology; zack negative f/u with me in 1-2 weeks d/c planning home with p.t. per pt request (2) HTN (hypertension) ICD Codes: I10 - Essential (primary) hypertension (3) Hyperlipidemia ICD Codes: E78.5 - Hyperlipidemia Status: Chronic Subjective Subjective Comments No acute events reported No headache No chest pain No dyspnea Active Medications Current Medications Medications (Trade) Dose Ordered Sig/Stanton Route Start Time Stop Time Status Last Admin (NS Flush) 2 ml BID IV FLUSH 04/06/17 21:00 04/07/17 21:00 (NS Flush) 2 ml UNSCH PRN IV FLUSH 04/06/17 14:00 (Lipitor) 10 mg HS PO 04/06/17 21:00 04/07/17 22:03 (D50w (Vial) Inj) 50 ml UNSCH PRN IV PUSH 04/06/17 14:00 (Glucagon Inj) 1 mg UNSCH PRN OTHER 04/06/17 14:00 (Heparin Inj) 5,000 units Q8H SQ 04/06/17 14:00 04/08/17 06:05 (NovoLOG SUPPLEMENTAL SCALE) 1 ACHS SQ 04/06/17 21:00 (Tylenol) 650 mg Q4H PRN PO 04/06/17 20:00 04/08/17 00:19 (Zofran Inj) 4 mg Q6H PRN IV PUSH 04/06/17 20:00 04/07/17 14:21 (Ivania-Colace) 1 tab BID PRN PO 04/06/17 20:00 (Tums Chew) 1,000 mg TID PRN CHEW 04/06/17 20:00 (Aggrenox 200-25 Mg) 1 cap BID PO 04/07/17 09:00 04/07/17 22:03 (Vasotec Inj) 1.25 mg Q6H PRN IV PUSH 04/07/17 16:30 (Catapres) 0.1 mg Q6H PRN PO 04/07/17 16:30 Allergies Allergies Coded Allergies butorphanol (Verified Allergy, Severe, RASH, 04/06/17) aspirin (Verified Allergy, Intermediate, Vertigo, 04/06/17) Uncoded Allergies STEROIDS ( Allergy, Mild, 04/11/16) Review of Systems All other ROS: ROS reviewed as documented in chart Exam I&O / VS Vital Signs Date Time Temp Pulse Resp B/P (MAP) Pulse Ox O2 Delivery O2 Flow Rate FiO2 04/08/17 07:05 96.5 74 20 126/66 (86) 91 04/08/17 03:53 77 04/08/17 03:30 18 04/08/17 03:13 98.5 78 18 140/78 (98) 92 04/08/17 02:05 18 04/08/17 00:05 83 04/07/17 23:49 98.5 91 18 148/85 (106) 92 04/07/17 21:46 98.5 94 18 145/88 (107) 91 04/07/17 20:04 92 04/07/17 14:17 96 04/07/17 11:44 97.5 79 20 159/83 (108) 91 04/07/17 09:25 80 General: Alert and Oriented, No acute distress Eye: PERRL Cardiology: Normal rate Musculoskeletal: ROM Neurologic: Alert, Oriented, Gag reflex normal, Normal DTR's Psychiatric: Cooperative, Appropriate mood & affect, Normal judgement Exam Comments ox 3, follows, left hemisensory with mild left dystaxia/weakness, able to raise all 4 ext to gravity > 4+/5 Objective Micro and Labs Laboratory Tests Test 04/07/17 10:19 Total Creatine Kinase 64 Troponin I 0.02 Problem Qualifiers (1) HTN (hypertension): Qualified Codes: I10 - Essential (primary) hypertension Kwame Quinonez MD Apr 08, 2017 08:53
[2017-04-08] MEDS: SODIUM CHLORIDE 0.9% FLUSH 5 ML FLUSH IV FLUSH SCH ×2 (09:00→21:00)
[2017-04-08] MEDS: DIPYRIDAMOLE/ASPIRIN 200 MG/25 MG CAP PO SCH (12:11)
--- NOTE | 2017-04-08 13:36 | HHI.PR ---
Subjective Remarks The patient was complaining of a persistent headache. She wanted to go home. Discussed with nursing and neurology. Objective Vitals Vital Signs Date Time Temp Pulse Resp B/P (MAP) Pulse Ox O2 Delivery O2 Flow Rate FiO2 04/08/17 11:25 95.9 78 21 131/81 (98) 93 04/08/17 07:05 96.5 74 20 126/66 (86) 91 04/08/17 03:53 77 04/08/17 03:30 18 04/08/17 03:13 98.5 78 18 140/78 (98) 92 04/08/17 02:05 18 04/08/17 00:05 83 04/07/17 23:49 98.5 91 18 148/85 (106) 92 04/07/17 21:46 98.5 94 18 145/88 (107) 91 04/07/17 20:04 92 04/07/17 14:17 96 I/O 04/07/17 04/07/17 04/07/17 04/08/17 04/08/17 04/08/17 07:00 15:00 23:00 07:00 15:00 23:00 Intake Total 0 ml 480 ml Balance 0 ml 480 ml Intake Oral 0 ml 480 ml # Voids 1 2 # Bowel Movements 0 Result Diagram: 04/06/17 1205 04/06/17 1205 Imaging Last Impressions Head CT 04/06/17 1205 Signed Impressions: Service Date/Time: Thursday, April 06, 2017 12:15 - CONCLUSION: 1. No focal or acute intracranial hemorrhage. 2. Stable old infarct in the left basal ganglia. 3. Moderate bilateral chronic white matter changes characteristic of patients age. Mike Camara MD Chest X-Ray 04/06/17 1205 Signed Impressions: Service Date/Time: Thursday, April 06, 2017 12:36 - CONCLUSION: No acute disease. No significant change has occurred. Mike Camara MD Head Magnetic Resonance Angiography 04/06/17 0000 Signed Impressions: Service Date/Time: Thursday, April 06, 2017 16:08 - CONCLUSION: No acute intracranial vascular abnormality is identified. Asa Laguerre MD Carotid Artery Ultrasound 04/06/17 0000 Signed Impressions: Service Date/Time: Thursday, April 06, 2017 22:43 - CONCLUSION: 1. No evidence of hemodynamically significant lesion. Marco Rodriguez MD Brain MRI 04/06/17 0000 Signed Impressions: Service Date/Time: Thursday, April 06, 2017 16:08 - CONCLUSION: 1. 10 mm linear band of restricted diffusion in the right frontoparietal high convexity indicating recent ischemia. 2. Severe periventricular and subcortical white matter signal change characteristic of chronic ischemic demyelinization. Asa Laguerre MD Objective Remarks GENERAL: This is a well-nourished, well-developed patient, in no apparent distress. SKIN: No rashes, ecchymoses or lesions. Cool and dry. CARDIOVASCULAR: Regular rate and rhythm without murmurs, gallops, or rubs. RESPIRATORY: Clear to auscultation. Breath sounds equal bilaterally. No wheezes , rales, or rhonchi. GASTROINTESTINAL: Abdomen soft, non-tender, nondistended. No guarding. MUSCULOSKELETAL: Extremities without clubbing, cyanosis, or edema. No joint tenderness, effusion, or edema noted. No calf tenderness. NEUROLOGICAL: Awake and alert. Cranial nerves II through XII intact. Left sided weakness 4/5 in upper and lower extremity. 5/5 in right upper and lower extremity. Sensory grossly intact throughout. Normal speech. PSYCH: Mood and affect appropriate. Medications and IVs Current Medications Medications (Trade) Dose Ordered Sig/Stanton Route Start Time Stop Time Status Last Admin (NS Flush) 2 ml BID IV FLUSH 04/06/17 21:00 04/08/17 09:00 (NS Flush) 2 ml UNSCH PRN IV FLUSH 04/06/17 14:00 (Lipitor) 10 mg HS PO 04/06/17 21:00 04/07/17 22:03 (D50w (Vial) Inj) 50 ml UNSCH PRN IV PUSH 04/06/17 14:00 (Glucagon Inj) 1 mg UNSCH PRN OTHER 04/06/17 14:00 (Heparin Inj) 5,000 units Q8H SQ 04/06/17 14:00 04/08/17 14:18 (NovoLOG SUPPLEMENTAL SCALE) 1 ACHS SQ 04/06/17 21:00 (Tylenol) 650 mg Q4H PRN PO 04/06/17 20:00 04/08/17 00:19 (Zofran Inj) 4 mg Q6H PRN IV PUSH 04/06/17 20:00 04/07/17 14:21 (Ivania-Colace) 1 tab BID PRN PO 04/06/17 20:00 (Tums Chew) 1,000 mg TID PRN CHEW 04/06/17 20:00 (Vasotec Inj) 1.25 mg Q6H PRN IV PUSH 04/07/17 16:30 (Catapres) 0.1 mg Q6H PRN PO 04/07/17 16:30 A/P Problem List: (1) Acute ischemic right MCA stroke ICD Code: I63.511 - Cerebral infarction due to unspecified occlusion or stenosis of right middle cerebral artery Status: Acute Assessment and Plan 76yo female with PMHX of HTN, HLD, hypothyroidism and hx of CVA 2 yrs ago who presents to [facility] ED with complaints of left sided weakness x 1 day. CVA with left-sided weakness. - Consult Neurology - Consult rehab medicine - CT head personally reviewed and shows stable old infarct left basal ganglia. - Neuro checks q4h - seizure precautions - Obtained Carotid US, Brain MRI and Head MRA. MRI showed: 10 mm linear band of restricted diffusion in the right frontoparietal high convexity indicating recent ischemia; Severe periventricular and subcortical white matter signal change characteristic of chronic ischemic demyelinization. - Obtained lipid panel, hgb A1c. Refused Lipitor, history of intolerance - TSH 2.08 - continuous cardiac monitoring - PT/OT/ST eval/tx - begin Lipitor 10mg - ASA switch to Aggrenox. Pt did not tolerate. Switched to ASA and Plavix per neuro. -Cardiology has been consulted. 3 week Holter monitor recommended. YURY negative. - repeat head CT for persistent KWOK and nausea. Chest pain, atypical - initial troponin 0.02 - CXR personally reviewed and shows no acute process - doubt ACS ruled out for [place] - EKG personally reviewed showing normal sinus rhythm with no e/o ischemia - supplemental oxygen as needed HTN - accelerated at admission. Improved - IV Vasotec and by mouth clonidine for blood pressure more than 180/100 - patient not on any antihypertensives at home - monitor and will consider starting treatment if indicated HLD -As above Elevated blood sugar - no personal hx of DM but strong FMHX of DM - obtain HgbA1c Hypothyroidism - patient not on any meds at home per med rec - TSH WNL DVT prophylaxis - bilateral SCD/JOHN hose - Heparin sq Discharge Planning Anticipate d/c with [facility] in [place] Antunez DO Apr 08, 2017 13:36
[2017-04-08] MEDS ORDERED: METOCLOPRAMIDE HCL 10 MG/2 ML VIAL IV PUSH ONE (14:00)
[2017-04-08] MEDS ORDERED: GETGO ROLLING W1 MI1 (14:06)
[2017-04-08] MEDS: ACETAMINOPHEN/HYDROcodone 325 MG/5 MG TAB PO PRN (16:31)
[2017-04-08] MEDS: CLOPIDOGREL 75 MG TAB PO SCH (17:00)
[2017-04-08] MEDS: ONDANSETRON HCL 4 MG/2 ML VIAL IV PUSH PRN (17:22)
[2017-04-08] MEDS: ASPIRIN EC 81 MG TABEC PO SCH (17:56)
--- NOTE | 2017-04-08 19:37 | RADRPT ---
EXAM DATE/TIME: 04/08/2017 18:44 [place] COMPARISON: CT BRAIN W/O CONTRAST, April 06, 2017, 12:15. INDICATIONS : Severe headache RADIATION DOSE: 56.35 CTDIvol (mGy) MEDICAL HISTORY : Cerebrovascular disease. Hypertension. SURGICAL HISTORY : Hysterectomy. Appendectomy.Cholecystectomy. ENCOUNTER: Initial ACUITY: 1 day PAIN SCALE: 4/10 LOCATION: cranial TECHNIQUE: Multiple contiguous axial images were obtained of the head. Using automated exposure control and adj ustment of the mA and/or kV according to patient size, radiation dose was kept as low as reasonably a chievable to obtain optimal diagnostic quality images. DICOM format image data is available electro nically for review and comparison. FINDINGS: CEREBRUM: Extensive periventricular low attenuation change involving both cerebral hemispheres. This is unchang ed. The ventricles are normal for age. No evidence of midline shift, mass lesion, hemorrhage or acut e infarction. No extra-axial fluid collections are seen. POSTERIOR FOSSA: The cerebellum and brainstem are intact. The 4th ventricle is midline. The cerebellopontine angle i s unremarkable. EXTRACRANIAL: The visualized portion of the orbits is intact. SKULL: The calvaria is intact. No evidence of skull fracture. CONCLUSION: 1. No acute intracranial abnormality. 2. Extensive chronic small vessel ischemic change. Glen Bennett Jr., MD on April 08, 2017 at 19:34 Board Certified Radiologist. This report was verified electronically.
[2017-04-08] MEDS: ATORVASTATIN 10 MG TAB PO SCH (21:42)
[2017-04-09 00:06] VITALS: BP 134/82; PULSE 84; RESP 18; TEMP 98.4; O2SAT 93
[2017-04-09 03:19] VITALS: BP 143/92; PULSE 80; RESP 17; TEMP 98.4; O2SAT 93
[2017-04-09] MEDS: HEPARIN SODIUM - SQ 10,000 UNITS/ML VIAL SQ SCH (06:42)
[2017-04-09 07:30] VITALS: PULSE 72
[2017-04-09 07:41] VITALS: BP 157/79; PULSE 80; RESP 16; TEMP 97.9; O2SAT 95
[2017-04-09] MEDS: INSULIN ASPART SUPPLEMENTAL SCALE SQ SCH ×2 (08:00→12:00)
[2017-04-09] MEDS: ASPIRIN EC 81 MG TABEC PO SCH (08:25)
[2017-04-09] MEDS: SODIUM CHLORIDE 0.9% FLUSH 5 ML FLUSH IV FLUSH SCH (08:25)
[2017-04-09] MEDS: CLOPIDOGREL 75 MG TAB PO SCH (08:25)
[2017-04-09] MEDS: ACETAMINOPHEN/HYDROcodone 325 MG/5 MG TAB PO PRN (08:26)
[2017-04-09 08:31] VITALS: O2SAT 97
[2017-04-09] MEDS ORDERED: PLAV75TA29 PO (09:01)
[2017-04-09] MEDS ORDERED: LIPI10TA PO (09:01)
[2017-04-09] MEDS ORDERED: HYDR-3516 PO (09:01)
--- NOTE | 2017-04-09 09:03 | HHI.FF ---
Face to Face Verification Diagnosis: (1) Nausea & vomiting (2) Hyperglycemia (3) Cerebrovascular accident (stroke) (4) Hyperlipidemia Physical Therapy Order: Evaluate and Treat, Improve ambulation, Strength and gait training Occupational Therapy Order: Evaluate and Treat, Improve ADL, Gross motor coordination, Fine motor coordination Home Health Nursing Order: Medical education Signs/symptoms of disease process Diabetic education Medication education-adverse effect Nursing assessment with vital signs I have seen patient Cynthia Barajas on 04/09/17. My clinical findings support the need for the requested home health care services because: Deconditioned w/ increased weakness Limited ability to care for self High risk of falls I certify that my clinical findings support that this patient is homebound because: Unsteady gait/balance Unsafe to leave home unassisted [place]pe Danielson DO Apr 09, 2017 09:03
--- NOTE | 2017-04-09 09:09 | HHI.DS ---
Discharge Summary Admission Date Apr 06, 2017 at 14:36 Discharge Date: Apr 09, 2017 Admitting Diagnosis CVA symptoms, left sided weakness and numbness (1) Acute ischemic right MCA stroke ICD Code: I63.511 - Cerebral infarction due to unspecified occlusion or stenosis of right middle cerebral artery Diagnosis: Principal Status: Acute (2) Nausea & vomiting ICD Code: R11.2 - Nausea with vomiting, unspecified (3) Cerebrovascular accident (stroke) ICD Code: I63.9 - Cerebrovascular accident (stroke) Diagnosis: Principal Status: Acute (4) Hyperglycemia ICD Code: R73.9 - Hyperglycemia, unspecified (5) Hyperlipidemia ICD Code: E78.5 - Hyperlipidemia Status: Chronic Procedures None Brief History - From Admission Written by Dunia Rodriguez, acting as scribe for Dr. Velázquez on 04/06/17 at 17 :27. This is a 76yo female with PMHX of HTN, HLD, hypothyroidism and hx of CVA 2 yrs ago who presents to [facility] ED with complaints of left sided weakness x 1 day. Patient reports waking up around 2am with sudden onset of left sided weakness. Patient states she went to stand up but was unable to bear weight. She denies any headaches or acute vision changes. She endorses cough and some left sided chest pain with deep inspiration for the past 2-3 days. She denies any fever, chills or night sweats. She denies any nausea or vomiting. She reports episode of diarrhea several days ago but this has resolved. She does not feel her strength has improved since coming to the ED. She denies any slurred speech or facial asymmetry which is how she presented with her stroke from 2 years ago. She endorses left sided lower abdominal pain for many years that has recently increased in severity. She denies any shortness of breath. She denies any urinary complaints. In the ED, CT of the head was obtained showing no acute intracranial process. CBC/BMP: 04/06/17 1205 04/06/17 1205 Significant Findings Laboratory Tests Test 04/06/17 12:05 04/06/17 12:50 04/06/17 20:50 04/07/17 03:35 Random Glucose 143 MG/DL (74-106) Albumin 3.2 GM/DL (3.4-5.0) Estimat Glomerular Filtration Rate 71 ML/MIN (>89) Hemoglobin A1c 6.5 % (4.3-6.0) Triglycerides Level 164 MG/DL (42-150) LDL Cholesterol 103 MG/DL (0-99) HDL Cholesterol 61.9 MG/DL (40.0-60.0) Test 04/07/17 10:19 Imaging Last Impressions Head CT 04/08/17 0000 Signed Impressions: Service Date/Time: March 18:44 - CONCLUSION: 1. No acute intracranial abnormality. 2. Extensive chronic small vessel ischemic change. Glen Bennett Jr., MD Chest X-Ray 04/06/17 1205 Signed Impressions: Service Date/Time: Thursday, April 06, 2017 12:36 - CONCLUSION: No acute disease. No significant change has occurred. Mike Camara MD Head Magnetic Resonance Angiography 04/06/17 0000 Signed Impressions: Service Date/Time: Thursday, April 06, 2017 16:08 - CONCLUSION: No acute intracranial vascular abnormality is identified. Asa Laguerre MD Carotid Artery Ultrasound 04/06/17 0000 Signed Impressions: Service Date/Time: Thursday, April 06, 2017 22:43 - CONCLUSION: 1. No evidence of hemodynamically significant lesion. Marco Rodriguez MD Brain MRI 04/06/17 0000 Signed Impressions: Service Date/Time: Thursday, April 06, 2017 16:08 - CONCLUSION: 1. 10 mm linear band of restricted diffusion in the right frontoparietal high convexity indicating recent ischemia. 2. Severe periventricular and subcortical white matter signal change characteristic of chronic ischemic demyelinization. Asa Laguerre MD PE at Discharge GENERAL: This is a well-nourished, well-developed patient, in no apparent distress. SKIN: No rashes, ecchymoses or lesions. Cool and dry. CARDIOVASCULAR: Regular rate and rhythm without murmurs, gallops, or rubs. RESPIRATORY: Clear to auscultation. Breath sounds equal bilaterally. No wheezes , rales, or rhonchi. GASTROINTESTINAL: Abdomen soft, non-tender, nondistended. No guarding. MUSCULOSKELETAL: Extremities without clubbing, cyanosis, or edema. No joint tenderness, effusion, or edema noted. No calf tenderness. NEUROLOGICAL: Awake and alert. Cranial nerves II through XII intact. Left sided weakness 4/5 in upper and lower extremity. 5/5 in right upper and lower extremity. Sensory grossly intact throughout. Normal speech. PSYCH: Mood and affect appropriate. Pt update on day of discharge The pt was still a little nauseous and she had a bit of a headache. She wanted to go home. Discussed with nursing. Hospital Course CVA 76yo female with PMHX of HTN, HLD, hypothyroidism and hx of CVA 2 yrs ago who presents to [facility] ED with complaints of left sided weakness x [address] head showed stable old infarct left basal ganglia. Obtained Carotid US, Brain MRI and Head MRA. MRI showed: 10 mm linear band of restricted diffusion in the right frontoparietal high convexity indicating recent ischemia; Severe periventricular and subcortical white matter signal change characteristic of chronic ischemic demyelinization. We consulted neurology and rehab medicine. She was placed on neuro checks and seizure precautions. LDL was 103. She had continuous cardiac monitoring. She worked with PT/OT/ST. We started Lipitor 10mg daily. ASA was switched to Aggrenox. Pt did not tolerate s/t headache and nausea. Repeat head CT was stable. We switched back to ASA 81 mg and Plavix per neuro. Cardiology has been consulted. YURY was negative. Three week Holter monitor recommended by cardiology, who she will follow up with upon discharge. She will also follow up with neurology as an outpt. HTN She received IV Vasotec and by mouth clonidine for blood pressure more than 180/ 100. She was started on lisinopril 10 mg daily. She will follow up with her PCP. Elevated blood sugar A1c was 6.5%. Lifestyle modifications and PCP follow-up were recommended. Pt Condition on Discharge: Stable Discharge Disposition: Disch w/ Home Health Serv Discharge Time: > 30 minutes Discharge Instructions DIET: Follow Instructions for: Heart Healthy Diet Speech Therapy-Diet Recommends: Regular Activities you can perform: Weight Bearing as Milady Follow up Referrals: Cardiology - 1 Week Neurology - 1 Week PCP Follow-up - 2-3 Days New Medications: Lisinopril (Lisinopril) 10 Mg Tab 10 MG PO DAILY, #30 TAB 0 Refills Walker Rolling/GetGo (Walker Rolling/GetGo) 1 Mis Mis EA .ROUTE DIRECTED, #1 Atorvastatin (Lipitor) 10 Mg Tab 10 MG PO HS for Cholesterol Management, #30 TAB Clopidogrel (Plavix) 75 Mg Tab 75 MG PO DAILY for CVA, #30 TAB Hydrocodone/Acetaminophen (Hydrocodone-Acetamin 5-325 mg) 5 Mg-325 Mg Tablet 1 TAB PO Q4H PRN for pain 3-10 for 10 Days, #60 TAB Continued Medications: Aspirin DR (Aspirin EC) 81 Mg Tabdr 81 MG PO DAILY, TAB 0 Refills Discontinued Medications: Acetaminophen (Mapap Extra Strength) 500 Mg Tab 1000 MG PO Q6HR PRN for PAIN, #60 TAB 0 Refills Chepe Danielson DO Apr 09, 2017 09:09
[2017-04-09] MEDS ORDERED: LISI10TA3 PO (09:13)
[2017-04-09] MEDS ORDERED: LISINOPRIL 10 MG TAB PO ONE (10:00)
[2017-04-09] MEDS ORDERED: METOCLOPRAMIDE HCL 10 MG/2 ML VIAL IV PUSH ONE (10:00)
[2017-04-09 11:51] VITALS: BP 127/75; PULSE 77; RESP 16; TEMP 98.8; O2SAT 93
== END 2017-04-09 15:51 | disposition home health service (06) | DRG 65 ==
LOC: NEPC 11:34 → NEDA 13:40 → OBSVTOIN 14:36 → NEPGCP 15:54
PROVIDERS: ADMIT Hospitalist; ATTEND Hospitalist
PROC: B246ZZ4 Ultrasonography of Right and Left Heart, Transesophageal (ICD-10-PCS; principal; 2017-04-07)
DX: I63.511 Cerebral infarction due to unspecified occlusion or stenosis of right middle cerebral artery (principal); G81.94 Hemiplegia, unspecified affecting left nondominant side; G37.9 Demyelinating disease of central nervous system, unspecified; I10 Essential (primary) hypertension; M15.9 Polyosteoarthritis, unspecified; E78.5 Hyperlipidemia, unspecified; R73.9 Hyperglycemia, unspecified; E03.9 Hypothyroidism, unspecified; H91.90 Unspecified hearing loss, unspecified ear; Z86.73 Personal history of transient ischemic attack (TIA), and cerebral infarction without residual deficits; Z88.6 Allergy status to analgesic agent
CPT/HCPCS: 70450; 70544; 70551; 71010; 76937; 80053; 80061; 81001; 82550; 82607; 82948; 83036; 83735; 84443; 84484; 85025; 85610; 85730; 93005; 93312; 93320; 93325; 93880; 94150; G0378; G8987-GO; G8987-GP; G8988-GO; G8988-GP; G8996-GN; G8997-GN; J1644; J2405; J2765